=== PATIENT | male | born 1950 | race Caucasian/White ===

== ENCOUNTER → 2020-05-02 10:19 | Outpatient (BNVA) | payer OTHER, SELFPAY | PROVIDERS: PCP Internal Medicine; Referring Provider Internal Medicine; Visit Provider Nurse Practitioner Family | DX: Z76.89 Persons encountering health services in other specified circumstances (principal) ==

== ENCOUNTER → 2020-06-04 10:55 | Outpatient (BNVA) | payer OTHER, SELFPAY | PROVIDERS: PCP Internal Medicine; Visit Provider Nurse Practitioner Family | DX: Z76.89 Persons encountering health services in other specified circumstances (principal) ==

== ENCOUNTER 2020-08-12 07:23 | Outpatient (REF) | payer OTHER, SELFPAY ==
[2020-08-12 08:29] LABS: MANUAL DIFF FLAG NO
[2020-08-12 08:34] LABS: Basophils Percent Auto 0.3 % (0-2); Eosinophils Absolute Auto 0.2 X10*3/uL (0.0-0.4); Eosinophils Percent Auto 3.1 % (0-4); Hematocrit 38.4 % (42-52); Imm Gran Abs Auto 0.01 X10*3/uL (0.00-0.03); Imm Gran Pct Auto 0.1 % (0.0-0.4); Lymphocytes Absolute Auto 2.5 X10*3/uL (1.2-4.9); Lymphocytes Percent Auto 37.8 % (20-40); Mean Corpuscular HGB Conc 33.9 g/dl (31.0-36.0); Mean Corpuscular Hemoglobin 28.7 pg (27.0-33.0); Mean Corpuscular Volume 84.8 fL (80-98); Mean Platelet Volume 9.9 fL (9.4-12.4); Monocytes Absolute Auto 0.6 X10*3/uL (0.1-1.2); Neutrophils Absolute Auto 3.3 X10*3/uL (2.0-8.3); Neutrophils Percent Auto 49.7 % (45-73); Platelet Count 189 X10*3/uL (160-400); Red Blood Count 4.53 X10*6/uL (4.60-5.80); Red Cell Distribution Width 12.8 % (11.0-16.0); White Blood Count 6.7 X10*3/uL (4.8-10.8)
[2020-08-12 08:54] LABS: Carbon Dioxide 27 mmol/L (22-29); Chloride 108 mmol/L (96-108); Sodium 144 mmol/L (135-145)
[2020-08-12 08:55] LABS: Alanine Aminotransferase 28 U/L (0-40); Albumin Level 4.2 g/dL (3.5-5.0); Alkaline Phosphatase 115 U/L (39-117); Anion Gap 13 (12-20); Aspartate Amino Transferase 21 U/L (5-37); Bilirubin Total 0.9 mg/dL (0.0-1.0); Blood Urea Nitrogen 15 mg/dL (9-16); Calcium 8.8 mg/dL (8.4-10.2); Cholesterol 103 mg/dL; Estimated Glomerular Filt Rate > 60; Glucose Fasting 102 mg/dL (60-99); HDL Cholesterol 31 mg/dL; LDL Cholesterol Calculated 44 mg/dl; Total Protein 6.7 g/dL (6.5-8.0); Triglycerides 142 mg/dL
[2020-08-12 08:55] LABS: Glucose Urine UA NEG (NEG); Leukocyte Esterase Urine NEG (NEG); Nitrite Urine NEG (NEG); Specific Gravity - Urine 1.025 (1.005-1.025); Urine Blood NEG (NEG); Urine Ketones NEG (NEG); Urine Protein NEG (NEG-TRACE)
[2020-08-12 08:57] LABS: Appearance Urine CLEAR; Color Urine YELLOW
[2020-08-12 09:19] LABS: Prostate Specific Antigen 1.77 ng/mL (<0.05-4.0)
== END 2020-08-12 07:24 | disposition home or self-care (01) ==
LOC: HO.LAB 07:23
PROVIDERS: Visit Provider Internal Medicine
DX: Z00.00 Encounter for general adult medical examination without abnormal findings (principal); E78.00 Pure hypercholesterolemia, unspecified; R79.89 Other specified abnormal findings of blood chemistry
CPT/HCPCS: 36415; 80053; 80061; 81003; 84153; 85025

== ENCOUNTER 2020-09-12 10:53 | Outpatient (REF) | payer OTHER, SELFPAY ==
[2020-09-12 12:41] LABS: MANUAL DIFF FLAG NO
[2020-09-12 13:02] LABS: Basophils Percent Auto 0.5 % (0-2); Eosinophils Absolute Auto 0.2 X10*3/uL (0.0-0.4); Eosinophils Percent Auto 2.6 % (0-4); Hematocrit 41.9 % (42-52); Hemoglobin 13.7 g/dl (14.0-18.0); Imm Gran Abs Auto 0.02 X10*3/uL (0.00-0.03); Imm Gran Pct Auto 0.2 % (0.0-0.4); Lymphocytes Absolute Auto 2.8 X10*3/uL (1.2-4.9); Lymphocytes Percent Auto 31.2 % (20-40); Mean Corpuscular HGB Conc 32.7 g/dl (31.0-36.0); Mean Corpuscular Hemoglobin 28.4 pg (27.0-33.0); Mean Corpuscular Volume 86.7 fL (80-98); Mean Platelet Volume 10.3 fL (9.4-12.4); Monocytes Absolute Auto 0.8 X10*3/uL (0.1-1.2); Monocytes Percent Auto 8.5 % (2-11); Neutrophils Absolute Auto 5.1 X10*3/uL (2.0-8.3); Platelet Count 274 X10*3/uL (160-400); Red Blood Count 4.83 X10*6/uL (4.60-5.80); Red Cell Distribution Width 13.4 % (11.0-16.0); White Blood Count 8.9 X10*3/uL (4.8-10.8)
[2020-09-12 13:19] LABS: Iron 57 mcg/dL (45-160); Percent Iron Saturation 15 % (15-50); Total Iron Binding Capacity 389 mcg/dL (228-428); Unsaturated Iron Binding 332 ug/dL
[2020-09-12 14:26] LABS: Folate 19.8 ng/mL (> or = 4.0); Vitamin B12 468 pg/mL (200-900)
== END 2020-09-12 10:54 | disposition home or self-care (01) ==
LOC: HO.LNP 10:53
PROVIDERS: Absent Provider Internal Medicine; PCP Internal Medicine; Visit Provider Internal Medicine Cardiovascular Disease
DX: I25.10 Atherosclerotic heart disease of native coronary artery without angina pectoris (principal); R79.89 Other specified abnormal findings of blood chemistry; Z79.82 Long term (current) use of aspirin; Z79.899 Other long term (current) drug therapy
CPT/HCPCS: 82607; 82746; 83540; 85025

== ENCOUNTER → 2020-11-22 14:47 | Outpatient (BNVA) | payer OTHER, SELFPAY | PROVIDERS: PCP Internal Medicine; Visit Provider Nurse Practitioner Family ==

== ENCOUNTER → 2020-12-06 13:28 | Outpatient (BNVA) | payer OTHER, SELFPAY | PROVIDERS: PCP Internal Medicine; Visit Provider Nurse Practitioner Family ==

== ENCOUNTER 2021-01-14 06:06 | Outpatient (REF) | payer OTHER, SELFPAY | END 2021-01-14 06:07 | disposition home or self-care (01) | LOC: HO.RADIR 06:06 | PROVIDERS: Visit Provider Anesthesiology | DX: Z13.89 Encounter for screening for other disorder (principal) ==

== ENCOUNTER 2021-01-22 06:03 | Outpatient (REF) | payer OTHER, SELFPAY ==
--- NOTE | ~2021-01-22 | FL_ITS ---
EXAMINATION: XR FLUOROSCOPY WITH IMAGES CLINICAL INFORMATION: M54.16 - Radiculopathy, lumbar region COMPARISON: MR lumbar spine 08/23/2013 TECHNIQUE: Fluoroscopy performed by Melanie Corona NP. Fluoroscopy time: 0.7 minutes DAP: 7.28 Gycm2 Images: 3 FINDINGS: There are bilateral spinal needles at outer aspect bilateral L4 neural foramen. There is contrast in the nerve sheaths and some transforaminal epidural extension. No visible vascular communication. FL/FL guidance in treatment room IMPRESSION: Fluoroscopy for pain management procedures.
== END 2021-01-22 06:04 | disposition home or self-care (01) ==
LOC: HO.RADIR 06:03
PROVIDERS: Visit Provider Internal Medicine
DX: M54.16 Radiculopathy, lumbar region (principal); M47.816 Spondylosis without myelopathy or radiculopathy, lumbar region
CPT/HCPCS: J1100; J3300; Q9967

== ENCOUNTER → 2021-01-22 07:22 | Outpatient (BNVA) | payer OTHER, SELFPAY | PROVIDERS: PCP Internal Medicine; Visit Provider Internal Medicine | DX: M54.16 Radiculopathy, lumbar region (principal); M47.816 Spondylosis without myelopathy or radiculopathy, lumbar region; E78.5 Hyperlipidemia, unspecified; I25.10 Atherosclerotic heart disease of native coronary artery without angina pectoris; Z95.5 Presence of coronary angioplasty implant and graft; Z98.890 Other specified postprocedural states; Z91.011 Allergy to milk products; Z79.899 Other long term (current) drug therapy | CPT/HCPCS: 64483 ==

== ENCOUNTER 2021-02-10 10:37 | Outpatient (REF) | payer OTHER, SELFPAY ==
[2021-02-10 11:33] LABS: Alanine Aminotransferase 13 U/L (0-40); Albumin Level 4.1 g/dL (3.5-5.0); Alkaline Phosphatase 109 U/L (39-117); Aspartate Amino Transferase 16 U/L (5-37); Bilirubin Direct 0.3 mg/dL (0.0-0.5); Bilirubin Total 0.8 mg/dL (0.0-1.0); Cholesterol 104 mg/dL; HDL Cholesterol 33 mg/dL; LDL Cholesterol Calculated 48 mg/dl; Total Protein 6.8 g/dL (6.5-8.0); Triglycerides 116 mg/dL
[2021-02-10 11:48] LABS: Reflex LDLD? No
== END 2021-02-10 10:38 | disposition home or self-care (01) ==
LOC: HO.LNP 10:37
PROVIDERS: Visit Provider Internal Medicine
DX: R79.89 Other specified abnormal findings of blood chemistry (principal); E78.00 Pure hypercholesterolemia, unspecified
CPT/HCPCS: 80061; 80076

== ENCOUNTER → 2021-02-18 08:50 | Outpatient (BNVA) | payer OTHER, SELFPAY | PROVIDERS: PCP Internal Medicine; Visit Provider Nurse Practitioner Family ==

== ENCOUNTER 2021-02-25 08:46 | Outpatient (REF) | payer OTHER, SELFPAY ==
--- NOTE | ~2021-02-25 | MR_ITS ---
EXAMINATION: MR LUMBAR SPINE WITHOUT AND WITH CONTRAST CLINICAL INFORMATION: Radiculopathy, lumbar region. COMPARISON: Lumbar spine MRI 08/23/2013. TECHNIQUE: MRI of the lumbar spine was obtained using routine sequences without and with intravenous contrast. A total of 8.5 mL Gadavist was intravenously administered. FINDINGS: The lumbar vertebral bodies maintain normal heights and alignment. No significant disc height loss is seen. Significant marrow edema is seen across the endplates of L4-L5 and some edema also present in the right-sided L4 and L5 pedicles. The distal spinal cord appears normal. The conus medullaris terminates normally at the L2 level. No abnormal cauda equina nerve root enhancement is seen. The visualized paraspinal muscles and intra-abdominal and pelvic contents are within normal limits. SPINAL LEVELS: L1-L2: No posterior disc abnormality. No spinal canal or neural foraminal stenosis. L2-L3: Mild disc bulging with mild facet arthropathy. No spinal canal or neural foraminal stenosis. No significant change. L3-L4: Disc bulging with ligamentum flavum infolding mild facet arthropathy resulting in mild spinal canal stenosis and asymmetric left subarticular stenosis and mild bilateral neural foraminal stenosis. Findings have mildly progressed. L4-L5: Postoperative findings related to posterior decompression. A 9 mm left-sided synovial facet cyst effaces the left subarticular zone resulting in compression of the traversing left L5 nerve root. In combination with disc bulging right-sided ligamentum flavum infolding and facet arthropathy there is moderate to severe spinal canal stenosis. Right-sided foraminal extrusion results in compression of the exiting right L4 nerve root. There is moderate left and moderate to severe right neural foraminal stenosis. Findings or new compared with prior. L5-S1: Disc bulging with ligamentum flavum infolding and moderate facet arthropathy resulting in bilateral subarticular stenosis with mild compression of the traversing left more than right S1 nerve roots. Moderate to severe left and severe right neural foraminal stenosis with compression of both exiting L5 nerve roots. MR/MR lumbar spine wo/w con IMPRESSION: At L4-L5 there are postoperative findings related to posterior decompression. A new left-sided synovial facet cyst measuring 9 mm in combination with degenerative changes results in compression of the traversing left L5 nerve root and moderate to severe spinal canal stenosis with thecal sac compression. Right foraminal extrusion compresses the exiting right L4 nerve root. Moderate left and moderate to severe right neural foraminal stenosis. At L5-S1 there is bilateral subarticular stenosis with mild compression of the traversing left more than right S1 nerve roots. Moderate to severe left and severe right neural foraminal stenosis is seen with compression of both exiting L5 nerve roots.
[2021-02-25 08:19] LABS: Blood Urea Nitrogen 14 mg/dL (9-16); Estimated Glomerular Filt Rate > 60
== END 2021-02-25 08:47 | disposition home or self-care (01) ==
LOC: HO.MRI 08:46
PROVIDERS: PCP Internal Medicine; Visit Provider Nurse Practitioner Family
DX: Z01.812 Encounter for preprocedural laboratory examination (principal); M54.16 Radiculopathy, lumbar region
CPT/HCPCS: 36415; 72158; 82565; 84520; A9585

== ENCOUNTER → 2021-03-12 11:31 | Outpatient (BNVA) | payer OTHER, SELFPAY | PROVIDERS: PCP Internal Medicine; Visit Provider Nurse Practitioner Family ==

== ENCOUNTER → 2021-03-13 10:09 | Outpatient (BNVA) | payer OTHER, SELFPAY | PROVIDERS: PCP Internal Medicine; Visit Provider Internal Medicine Cardiovascular Disease | DX: I25.118 Atherosclerotic heart disease of native coronary artery with other forms of angina pectoris (principal); E78.5 Hyperlipidemia, unspecified; M54.16 Radiculopathy, lumbar region; Z87.891 Personal history of nicotine dependence; Z98.890 Other specified postprocedural states; Z95.5 Presence of coronary angioplasty implant and graft; Z91.011 Allergy to milk products; Z79.899 Other long term (current) drug therapy | CPT/HCPCS: 93005 ==

== ENCOUNTER 2021-04-02 06:31 | Outpatient (REF) | payer OTHER, SELFPAY ==
--- NOTE | ~2021-04-02 | FL_ITS ---
EXAMINATION: XR FLUOROSCOPY WITH IMAGES CLINICAL INFORMATION: Spondylosis without myelopathy or radiculopathy. COMPARISON: Previous exam 01/22/2021 TECHNIQUE: Fluoroscopy performed by Melanie Corona NP. Fluoroscopy time: 0.3 minutes DAP: 2.46 Gycm2 Images: 2 FINDINGS: 2 images operative fluoroscopy reveals needle positioned adjacent to the right L5 and L4 pedicles with contrast opacifying the adjacent soft tissues. There is opacification of right epidural space at the L4-L5 disc level. Visualized bones and intervening disc heights appear unremarkable. FL/FL guidance in treatment room IMPRESSION: Fluoroscopy was provided to referring physician for pain management.
== END 2021-04-02 06:32 | disposition home or self-care (01) ==
LOC: HO.RADIR 06:31
PROVIDERS: Visit Provider Internal Medicine
DX: M47.816 Spondylosis without myelopathy or radiculopathy, lumbar region (principal); M54.16 Radiculopathy, lumbar region
CPT/HCPCS: 64493; 64494; Q9967

== ENCOUNTER → 2021-04-11 08:26 | Outpatient (BNVA) | payer OTHER, SELFPAY | PROVIDERS: PCP Internal Medicine; Visit Provider Internal Medicine ==

== ENCOUNTER → 2021-06-30 10:59 | Outpatient (BNVA) | payer OTHER, SELFPAY | PROVIDERS: PCP Internal Medicine; Visit Provider Internal Medicine ==

== ENCOUNTER 2021-07-30 05:46 | Outpatient (REF) | payer OTHER, SELFPAY ==
--- NOTE | ~2021-07-30 | FL_ITS ---
EXAMINATION: Intraoperative fluoroscopy CLINICAL INFORMATION: Spondylosis COMPARISON: Intraoperative fluoroscopy 04/02/2021 TECHNIQUE: Intraoperative fluoroscopy was provided for use by Dr. Mustafa. A total of 7 images were saved to PACS. A radiologist was not present during imaging. Today's dictation is only for administrative purposes to document intraoperative fluoroscopic usage. TOTAL FLUOROSCOPIC TIME: 0.8 minutes FL/FL guidance in treatment room FINDINGS~\^^ Intraoperative fluoroscopy provided for use by Dr. Mustafa. Please see operative note for detailed findings.
== END 2021-07-30 05:47 | disposition home or self-care (01) ==
LOC: HO.RADIR 05:46
PROVIDERS: Visit Provider Internal Medicine
DX: M47.816 Spondylosis without myelopathy or radiculopathy, lumbar region (principal); M54.16 Radiculopathy, lumbar region
CPT/HCPCS: 64635; 64636

== ENCOUNTER → 2021-08-06 10:51 | Outpatient (BNVA) | payer OTHER, SELFPAY | PROVIDERS: PCP Internal Medicine; Referring Provider Internal Medicine; Visit Provider Internal Medicine Cardiovascular Disease ==

== ENCOUNTER 2021-08-25 10:40 | Outpatient (REF) | payer OTHER, SELFPAY ==
[2021-08-25 10:43] LABS: MANUAL DIFF FLAG NO
[2021-08-25 10:52] LABS: Basophils Percent Auto 0.3 % (0-2); Eosinophils Absolute Auto 0.2 X10*3/uL (0.0-0.4); Eosinophils Percent Auto 2.9 % (0-4); Hematocrit 39.1 % (42.0-52.0); Hemoglobin 11.9 g/dl (14.0-18.0); Imm Gran Abs Auto 0.01 X10*3/uL (0.00-0.03); Imm Gran Pct Auto 0.1 % (0.0-0.4); Lymphocytes Absolute Auto 2.5 X10*3/uL (1.2-4.9); Lymphocytes Percent Auto 32.8 % (20-40); Mean Corpuscular HGB Conc 30.4 g/dl (31.0-36.0); Mean Corpuscular Hemoglobin 24.1 pg (27.0-33.0); Mean Corpuscular Volume 79.1 fL (80.0-98.0); Mean Platelet Volume 10.6 fL (9.4-12.4); Monocytes Absolute Auto 0.7 X10*3/uL (0.1-1.2); Monocytes Percent Auto 9.3 % (2-11); Neutrophils Absolute Auto 4.2 x10*3/uL (2.0-8.3); Neutrophils Percent Auto 54.6 % (45-73); Platelet Count 251 X10*3/uL (160-400); Red Blood Count 4.94 X10*6/uL (4.60-5.80); White Blood Count 7.6 X10*3/uL (4.8-10.8)
[2021-08-25 11:00] LABS: Appearance Urine CLEAR; Color Urine YELLOW; Glucose Urine UA NEG (NEG); Leukocyte Esterase Urine NEG (NEG); Nitrite Urine NEG (NEG); PH 5.5 (5.0-8.0); Specific Gravity - Urine 1.025 (1.005-1.025); Urine Blood NEG (NEG); Urine Ketones NEG (NEG); Urine Protein NEG (NEG-TRACE)
[2021-08-25 11:19] LABS: Alanine Aminotransferase 17 U/L (0-40); Albumin Level 4.2 g/dL (3.5-5.0); Alkaline Phosphatase 134 U/L (39-117); Anion Gap 12 (12-20); Aspartate Amino Transferase 21 U/L (5-37); Bilirubin Total 0.7 mg/dL (0.0-1.0); Blood Urea Nitrogen 16 mg/dL (9-16); Calcium 9.3 mg/dL (8.4-10.2); Carbon Dioxide 26 mmol/L (22-29); Chloride 110 mmol/L (96-108); Cholesterol 102 mg/dL; Estimated Glomerular Filt Rate > 60; Glucose Fasting 103 mg/dL (60-99); HDL Cholesterol 31 mg/dL; LDL Cholesterol Calculated 52 mg/dl; Potassium 3.9 mmol/L (3.3-5.1); Sodium 144 mmol/L (135-145); Total Protein 6.8 g/dL (6.5-8.0); Triglycerides 99 mg/dL
[2021-08-25 12:17] LABS: PSA,Total (Free>4and<10) 3.62 ng/mL (0.00-4.00)
== END 2021-08-25 10:41 | disposition home or self-care (01) ==
LOC: HO.LNP 10:40
PROVIDERS: PCP Internal Medicine; Visit Provider Internal Medicine
DX: Z00.00 Encounter for general adult medical examination without abnormal findings (principal); R79.89 Other specified abnormal findings of blood chemistry; E78.00 Pure hypercholesterolemia, unspecified
CPT/HCPCS: 80053; 80061; 81003; 84153; 85025

== ENCOUNTER → 2021-08-29 10:04 | Outpatient (BNVA) | payer OTHER, SELFPAY | PROVIDERS: PCP Internal Medicine; Visit Provider Internal Medicine ==

== ENCOUNTER 2021-10-08 06:20 | Outpatient (REF) | payer OTHER, SELFPAY ==
--- NOTE | ~2021-10-08 | FL_ITS ---
EXAMINATION: XR FLUOROSCOPY WITH IMAGES CLINICAL INFORMATION: M48.062 - Spinal stenosis, lumbar region COMPARISON: MR lumbar spine 02/25/2021 TECHNIQUE: Fluoroscopy performed by Dr. Michael De La Cruz. Fluoroscopy time: 1.0 minutes DAP: 5.69 Gycm2 Images: 4 FINDINGS: There are spinal needles overlying the bilateral outer L4 neural foramen. There is contrast seen in the respective nerve sheaths along with early transforaminal epidural extension. No visible vascular communication. FL/FL guidance in treatment room IMPRESSION: Fluoroscopy for pain management procedures.
== END 2021-10-08 06:21 | disposition home or self-care (01) ==
LOC: HO.RADIR 06:20
PROVIDERS: Visit Provider Internal Medicine
DX: M47.816 Spondylosis without myelopathy or radiculopathy, lumbar region (principal); M48.062 Spinal stenosis, lumbar region with neurogenic claudication; Z87.891 Personal history of nicotine dependence
CPT/HCPCS: 64483; 64484; J1100; Q9967

== ENCOUNTER → 2021-11-07 10:35 | Outpatient (BNVA) | payer OTHER, SELFPAY | PROVIDERS: PCP Internal Medicine; Visit Provider Nurse Practitioner Family | DX: Z13.89 Encounter for screening for other disorder (principal) ==

== ENCOUNTER 2021-11-24 10:30 | Outpatient (REF) | payer OTHER, SELFPAY ==
[2021-11-24 11:07] LABS: Alanine Aminotransferase 16 U/L (0-40); Albumin Level 4.3 g/dL (3.5-5.0); Alkaline Phosphatase 113 U/L (39-117); Aspartate Amino Transferase 17 U/L (5-37); Bilirubin Direct 0.2 mg/dL (0.0-0.5); Bilirubin Total 0.6 mg/dL (0.0-1.0); Total Protein 6.8 g/dL (6.5-8.0)
== END 2021-11-24 10:31 | disposition home or self-care (01) ==
LOC: HO.LNP 10:30
PROVIDERS: PCP Internal Medicine; Visit Provider Internal Medicine
DX: R79.89 Other specified abnormal findings of blood chemistry (principal)
CPT/HCPCS: 80076

== ENCOUNTER → 2021-12-08 10:23 | Outpatient (BNVA) | payer OTHER, SELFPAY | PROVIDERS: PCP Internal Medicine; Visit Provider Internal Medicine | DX: M48.062 Spinal stenosis, lumbar region with neurogenic claudication (principal) ==

== ENCOUNTER → 2022-02-12 09:08 | Outpatient (BNVA) | payer OTHER, SELFPAY | PROVIDERS: PCP Internal Medicine; Referring Provider Internal Medicine; Visit Provider Internal Medicine Cardiovascular Disease | DX: I25.10 Atherosclerotic heart disease of native coronary artery without angina pectoris (principal); R00.1 Bradycardia, unspecified | CPT/HCPCS: 93005 ==

== ENCOUNTER 2022-02-26 10:22 | Outpatient (REF) | payer OTHER, SELFPAY ==
[2022-02-26 10:51] LABS: Alanine Aminotransferase 20 U/L (0-40); Albumin Level 4.4 g/dL (3.5-5.0); Alkaline Phosphatase 141 U/L (39-117); Aspartate Amino Transferase 19 U/L (5-37); Bilirubin Direct 0.2 mg/dL (0.0-0.5); Bilirubin Total 0.6 mg/dL (0.0-1.0); Cholesterol 136 mg/dL; HDL Cholesterol 33 mg/dL; LDL Cholesterol Calculated 33 mg/dl; Total Protein 6.9 g/dL (6.5-8.0); Triglycerides 350 mg/dL
== END 2022-02-26 10:23 | disposition home or self-care (01) ==
LOC: HO.LNP 10:22
PROVIDERS: Visit Provider Internal Medicine
DX: Z12.5 Encounter for screening for malignant neoplasm of prostate (principal); R97.20 Elevated prostate specific antigen [PSA]; R79.89 Other specified abnormal findings of blood chemistry; E78.00 Pure hypercholesterolemia, unspecified
CPT/HCPCS: 80061; 80076; 84153

== ENCOUNTER → 2022-08-17 10:10 | Outpatient (BNVA) | payer OTHER, SELFPAY | PROVIDERS: PCP Internal Medicine; Referring Provider Internal Medicine; Visit Provider Internal Medicine Cardiovascular Disease | DX: Z13.89 Encounter for screening for other disorder (principal) ==

== ENCOUNTER 2022-08-27 10:19 | Outpatient (REF) | payer OTHER, SELFPAY ==
[2022-08-27 10:24] LABS: MANUAL DIFF FLAG NO
[2022-08-27 10:53] LABS: Appearance Urine Clear; Color Urine Yellow; Glucose Urine UA Negative (Negative); Leukocyte Esterase Urine Negative (Negative); Nitrite Urine Negative (Negative); PH 5.5 (5.0-9.0); Urine Blood Negative (Negative); Urine Ketones Negative (Negative); Urine Protein Negative (Neg-Trace)
[2022-08-27 11:13] LABS: Alanine Aminotransferase 21 U/L (0-40); Albumin Level 4.2 g/dL (3.5-5.0); Alkaline Phosphatase 124 U/L (39-117); Anion Gap 12 (12-20); Aspartate Amino Transferase 23 U/L (5-37); Bilirubin Total 1.3 mg/dL (0.0-1.0); Blood Urea Nitrogen 18 mg/dL (9-16); Calcium 9.2 mg/dL (8.4-10.2); Carbon Dioxide 25 mmol/L (22-29); Chloride 108 mmol/L (96-108); Cholesterol 131 mg/dL; Estimated Glomerular Filt Rate > 60; Glucose Fasting 91 mg/dL (60-99); HDL Cholesterol 35 mg/dL; LDL Cholesterol Calculated 67 mg/dl; Potassium 3.9 mmol/L (3.3-5.1); Sodium 141 mmol/L (135-145); Total Protein 6.5 g/dL (6.5-8.0); Triglycerides 147 mg/dL
[2022-08-27 11:22] LABS: Basophils Percent Auto 0.5 % (0-2); Eosinophils Absolute Auto 0.2 X10*3/uL (0.0-0.4); Eosinophils Percent Auto 3.1 % (0-4); Hematocrit 41.3 % (42.0-52.0); Imm Gran Abs Auto 0.03 X10*3/uL (0.00-0.03); Imm Gran Pct Auto 0.4 % (0.0-0.4); Lymphocytes Absolute Auto 2.7 X10*3/uL (1.2-4.9); Lymphocytes Percent Auto 35.1 % (20-40); Mean Corpuscular HGB Conc 33.9 g/dl (31.0-36.0); Mean Corpuscular Hemoglobin 28.9 pg (27.0-33.0); Mean Corpuscular Volume 85.2 fL (80.0-98.0); Mean Platelet Volume 10.5 fL (9.4-12.4); Monocytes Absolute Auto 0.7 X10*3/uL (0.1-1.2); Neutrophils Percent Auto 51.9 % (45-73); Platelet Count 232 X10*3/uL (160-400); Red Blood Count 4.85 X10*6/uL (4.60-5.80); Red Cell Distribution Width 14.4 % (11.0-16.0); White Blood Count 7.8 X10*3/uL (4.8-10.8)
[2022-08-27 11:28] LABS: PSA,Total (Free>4and<10) 3.42 ng/mL (0.00-4.00)
== END 2022-08-27 10:20 | disposition home or self-care (01) ==
LOC: HO.LNP 10:19
PROVIDERS: Visit Provider Internal Medicine
DX: Z00.00 Encounter for general adult medical examination without abnormal findings (principal); Z12.5 Encounter for screening for malignant neoplasm of prostate; E78.00 Pure hypercholesterolemia, unspecified; R79.89 Other specified abnormal findings of blood chemistry
CPT/HCPCS: 80053; 80061; 81003; 84153; 85025

== ENCOUNTER 2022-09-24 09:06 | Outpatient (REF) | payer OTHER, SELFPAY ==
--- NOTE | ~2022-09-24 | XR_ITS ---
EXAMINATION: XR SHOULDER, RIGHT CLINICAL INFORMATION: Pain. COMPARISON: None TECHNIQUE: AP neutral, scapular Y, and axillary views of the right shoulder. FINDINGS: There is bony demineralization. The glenohumeral joint is intact and shows very mild osteoarthritic change. The acromioclavicular and coracoclavicular intervals are normal. There is mild osteoarthritic change of the acromioclavicular joint. No fracture or dislocation is seen. There is a soft tissue calcification seen anterior to the proximal right humerus. No foreign body is seen. There is no right pneumothorax. XR/XR shoulder LT min 2V IMPRESSION: 1. No fracture or dislocation is seen. 2. There is very mild osteoarthritic change of the right glenohumeral joint, and mild osteoarthritic changes seen of the right acromioclavicular joint. EXAMINATION: XR SHOULDER, LEFT CLINICAL INFORMATION: Pain. COMPARISON: None TECHNIQUE: AP neutral, scapular Y, and axillary views of the left shoulder. FINDINGS: There is bony demineralization. The glenohumeral joint is intact. There is a tiny accessory ossification center seen at the inferior margin of the glenoid. The acromioclavicular and coracoclavicular intervals are normal. There is mild osteoarthritic change of the acromioclavicular joint. There is calcific tendinitis of the left rotator cuff. No foreign body is seen. There is no left pneumothorax. IMPRESSION: 1. No fracture or dislocation is seen. 2. There is mild osteoarthritic change of the left acromioclavicular joint. 3. There is calcific tendinitis of the left rotator cuff.
--- NOTE | ~2022-09-24 | XR_ITS ---
EXAMINATION: XR SHOULDER, RIGHT CLINICAL INFORMATION: Pain. COMPARISON: None TECHNIQUE: AP neutral, scapular Y, and axillary views of the right shoulder. FINDINGS: There is bony demineralization. The glenohumeral joint is intact and shows very mild osteoarthritic change. The acromioclavicular and coracoclavicular intervals are normal. There is mild osteoarthritic change of the acromioclavicular joint. No fracture or dislocation is seen. There is a soft tissue calcification seen anterior to the proximal right humerus. No foreign body is seen. There is no right pneumothorax. XR/XR shoulder RT min 2V IMPRESSION: 1. No fracture or dislocation is seen. 2. There is very mild osteoarthritic change of the right glenohumeral joint, and mild osteoarthritic changes seen of the right acromioclavicular joint. EXAMINATION: XR SHOULDER, LEFT CLINICAL INFORMATION: Pain. COMPARISON: None TECHNIQUE: AP neutral, scapular Y, and axillary views of the left shoulder. FINDINGS: There is bony demineralization. The glenohumeral joint is intact. There is a tiny accessory ossification center seen at the inferior margin of the glenoid. The acromioclavicular and coracoclavicular intervals are normal. There is mild osteoarthritic change of the acromioclavicular joint. There is calcific tendinitis of the left rotator cuff. No foreign body is seen. There is no left pneumothorax. IMPRESSION: 1. No fracture or dislocation is seen. 2. There is mild osteoarthritic change of the left acromioclavicular joint. 3. There is calcific tendinitis of the left rotator cuff.
== END 2022-09-24 09:07 | disposition home or self-care (01) ==
LOC: HO.HOSX 09:06
PROVIDERS: Visit Provider Orthopaedic Surgery
DX: M75.42 Impingement syndrome of left shoulder (principal); M75.52 Bursitis of left shoulder; M25.511 Pain in right shoulder
CPT/HCPCS: 20610; 73030; J1100

== ENCOUNTER 2022-11-18 13:06 | Outpatient (REF) | payer OTHER, SELFPAY ==
--- NOTE | 2022-11-18 10:00 | EMG_ITS ---
Please see scanned EMG / Nerve Conduction Report. MTDD
== END 2022-11-18 13:07 | disposition home or self-care (01) ==
LOC: HO.NEURO 13:06
PROVIDERS: PCP Internal Medicine; Visit Provider Internal Medicine
DX: G56.03 Carpal tunnel syndrome, bilateral upper limbs (principal)
CPT/HCPCS: 95885; 95913

== ENCOUNTER → 2022-12-25 10:33 | Outpatient (BNVA) | payer OTHER, SELFPAY | PROVIDERS: PCP Internal Medicine; Visit Provider Internal Medicine ==

== ENCOUNTER 2023-02-03 06:00 | Outpatient (REF) | payer OTHER, SELFPAY ==
--- NOTE | ~2023-02-03 | FL_ITS ---
EXAMINATION: XR FLUOROSCOPY WITH IMAGES CLINICAL INFORMATION: Spondylosis without myelopathy or radiculopathy, lumbar region. COMPARISON: None available. TECHNIQUE: Fluoroscopy Supervised By: Dr. De La Cruz. Fluoroscopy Time: 0.5 minutes. Cumulative Dose: 15.9 mGy. DAP: 1.16 Gycm2. Images: 5. FINDINGS: Images demonstrate needle placement and contrast injection over the left lateral lower lumbar vertebral bodies. FL/FL guidance in treatment room IMPRESSION: Fluoroscopy guidance for pain management procedure.
== END 2023-02-03 06:01 | disposition home or self-care (01) ==
LOC: CF 06:00
PROVIDERS: Visit Provider Internal Medicine
DX: M47.816 Spondylosis without myelopathy or radiculopathy, lumbar region (principal)
CPT/HCPCS: 64493; 64494; J1020; J1040

== ENCOUNTER 2023-02-03 08:13 | Outpatient (AMB) | payer OTHER, SELFPAY ==
[2023-02-03 08:19] VITALS: BP 128/64; PULSE 58; RESP 14; O2SAT 97
--- NOTE | 2023-02-03 08:19 | A.OFFVIS_ITS ---
Intake Vital Signs 02/03/23 08:19 BP 128/64 Blood Pressure Location Rt brachial Position Sitting Respiration 14 Pulse 58 Pulse Source Pulse Oximeter Pulse Oximetry (%) 97 Oxygen Delivery Method Room Air Intake Visit Reasons: Ramon theraputic L4-L5, L5-S1 facet injections Allergies milk [MILK] Adverse Reaction (Mild, Verified 02/03/23 08:20) CONGESTION PFSH Medical History Coronary artery arteriosclerosis HLD (hyperlipidemia) Lumbar radiculitis Spinal stenosis, lumbar region with neurogenic claudication Surgical History History of back surgery History of carpal tunnel surgery Hx of appendectomy Hx of cardiac cath (~01/2016) Hx of knee surgery (~08/2016) Hx of tonsillectomy Stented coronary artery Family History Father CVD (cardiovascular disease) Mother No problems noted. Social History Alcohol intake: never Patient Tobacco Use Status: Former Tobacco user Years Smoked: 5 years only quit at age 21 Physical Exam Vital Signs: Last Vital Signs Pulse 58 02/03/23 08:19 Resp 14 02/03/23 08:19 BP 128/64 02/03/23 08:19 Pulse Ox 97 02/03/23 08:19 Oxygen Delivery Method Room Air 02/03/23 08:19 Office Procedures Lumbar/Sacral Facet Inj Details: Lumbar Intra-articular Facet Injections, Bilateral, L4/L5, L5/S1 After obtaining written consent, pre-procedure blood pressure and pulse were recorded and are in the nursing record for review. The patient was placed in a prone position. The respective lumbosacral area was prepped with chloraprep and draped in sterile fashion. The target facet joints were visualized using ipsilateral oblique fluoroscopy to reveal the joint line. The skin over the target facet joints was anesthetized with 0.5% lidocaine. A 22 gauge 3.5 inch needle with a small bend on the tip was advanced towards the target facet joint under fluoroscopic guidance until bony contact. The needle was then maneuvered and rotated until it slid into the joint slightly. No paresthesias were elicited with needle placement and aspiration was negative for blood and CSF. Intra- articular position was confirmed with 0.1 mL Isovue. Next, 10 mg of methylprednisone mixed with 0.5 ml 0.5% ropivicaine was injected (0.5cc total per level). The identical procedure was performed at the remaining levels. The skin was cleansed and a sterile bandage was applied. Following the procedure the patient's vital signs were stable. The patient tolerated the procedure well and no complications were encountered. Following the procedure the patient's vital signs were stable. The patient was discharged home in good condition with post-procedural instructions. Time Out: Immediately prior to the procedure, the following was verbally confirmed that there is a signed consent form and that the correct patient, planned procedure, site and side are consistent with documentation and that necessary equipment and/or blood products are available prior to the start of the case. Complications: none EBL: <5 cc 11335 - second level, with Fluoroscopy (bilateral) Procedure code (CPT) selection complete Results Reviewed Results Reviewed: 02/03/23 08:41 Lidocaine HCl 2 % MPF [Xylocaine 2 % MPF] 5 ml .ROUTE .STK-MED ONE methylPREDNISolone acetate [DEPO-MedroL] 80 mg .ROUTE .STK-MED ONE Assessment & Plan Assessment & Plan (1) Lumbar facet arthropathy: Code(s): M47.816 - Spondylosis without myelopathy or radiculopathy, lumbar region Plan Patient is status post bilateral intra-articular facet injections at L4/5 and L5/S1. Patient tolerated procedure well and was discharged home in stable condition with discharge instructions. All questions were answered. We will follow-up via telephone or in clinic to assess response to therapy. A follow-up appointment was made during today's visit. Orders: Orders FL guidance in treatment room Today M47.816 - Spondylosis without myelopathy or radiculopathy, lumbar region Coding Level of Care Code Procedure Only Diagnoses Lumbar facet arthropathy M47.816 CPT Codes Facet Injection-Lumbar/Sacral - CPT: 77124 - second level, with Fluoroscopy ([id number])
== END 2023-02-03 09:15 | disposition home or self-care (01) ==
LOC: HO.PMCPRC 08:13
PROVIDERS: PCP Internal Medicine; Visit Provider Internal Medicine
DX: M47.816 Spondylosis without myelopathy or radiculopathy, lumbar region (principal)
CPT/HCPCS: 64493; 64494

== ENCOUNTER 2023-02-10 08:20 | Outpatient (AMB) | payer OTHER, SELFPAY ==
[2023-02-10 08:31] VITALS: BP 122/64; PULSE 48; BMI 31.7
--- NOTE | 2023-02-10 08:31 | A.OFFVIS_ITS ---
Intake Vital Signs 02/10/23 08:31 Height 5 ft 4 in Weight 184 lb 11.958 oz BMI 31.7 BP 122/64 Blood Pressure Location Lt brachial Position Sitting Pulse 48 L Pulse Source Monitor Intake Visit Reasons: 6 month f/u Intake Note: 6 month follow up with EKG. Pt reports shortness of breath on exertion. Wax Bleacher Required: No Accompanied by: Self / Same As Patient Allergies milk [MILK] Adverse Reaction (Mild, Verified 02/10/23 08:34) CONGESTION Medication List - Last Reconciled 02/10/23 by Misha Ma MD amlodipine 10 mg (2 x 5 mg) PO DAILY aspirin (Adult Low Dose Aspirin) 81 mg PO DAILY atorvastatin 40 mg PO DAILY 90 days gabapentin 100 mg PO TID 30 days metoprolol succinate ER 25 mg PO DAILY nitroglycerin 0.4 mg sublingual Q5M PRN omeprazole 20 mg PO DAILY sertraline 100 mg PO DAILY HPI HPI Comments 2 History of Present Illness Details Deangelo comes for follow-up. He has been feeling extremely well since injection to spine and his pain is much improved. Now when he is climbing a flight of stairs or doing his usual activity gets short of breath on exertion. He denies any orthopnea, PND, leg edema. No actual anginal sounding chest discomfort. Taking all his medications. Denies palpitations, lightheadedness, syncope. REPLACED BY [facility] Medical History Coronary artery arteriosclerosis HLD (hyperlipidemia) Lumbar radiculitis Spinal stenosis, lumbar region with neurogenic claudication Surgical History History of back surgery History of carpal tunnel surgery Hx of appendectomy Hx of cardiac cath (~01/2016) Hx of knee surgery (~08/2016) Hx of tonsillectomy Stented coronary artery Family History Father CVD (cardiovascular disease) Mother No problems noted. Social History Alcohol intake: never Patient Tobacco Use Status: Former Tobacco user Years Smoked: 5 years only quit at age 21 Review of Systems Const Denies weakness ENT Denies dizziness Card Denies chest pain, Denies chest pain with activity, Denies syncope, Denies rapid heart rate, Denies pedal edema, Denies edema, Denies leg edema, Denies lightheadedness, Denies palpitations, Denies dyspnea, Denies dyspnea on exertion and Denies orthopnea Resp Denies cough, Denies dyspnea and Denies dyspnea on exertion GI Denies hematochezia and Denies change in stool character Musc Denies abnormal gait, Denies muscle cramps, Denies muscle weakness, Denies numbness, Denies radiating pain into limb and Denies tingling Neuro Denies abnormal gait, Denies dizziness, Denies syncope, Denies numbness, Denies tingling and Denies weakness Endo Denies palpitations Physical Exam Vital Signs: Last Vital Signs Pulse 48 L 02/10/23 08:31 BP 122/64 02/10/23 08:31 BMI result Body Mass Index 31.7 Const General: cooperative, comfortable, no acute distress, alert and awake Nutritional Appearance: overweight Orientation/consciousness: patient oriented x3 Limitations: no limitations Neck Neck: Yes trachea midline and Yes no JVD Chest Chest palpation & inspection: normal inspection of the chest Resp Effort & Inspection: normal respiratory effort Auscultation: clear to auscultation bilaterally Cardio Jugular venous distension: no JVD Palpation: normal PMI Rate: regular rate Rhythm: regular rhythm Heart sounds: S1 normal heart sound present, S2 normal heart sound present and Other heart sounds present (S4 present) Skin General skin exam: no rashes or lesions noted Neuro General: patient oriented x3 and no focal motor deficits Extrem General: Yes no clubbing, cyanosis or edema Psych Appearance: grossly normal Office Procedures EKG Details: EKG shows sinus bradycardia with right bundle-branch block at 48 beats per minute [id number], Complete Assessment & Plan Assessment & Plan (1) SOB (shortness of breath) on exertion: Code(s): R06.02 - Shortness of breath Plan: Patient with symptom limiting exertional shortness of breath. No overt signs of heart failure. Need to rule out any significant progressive myocardial ischemia and/or LV systolic and diastolic function. Could also be related to chronotropic competence related to sinus bradycardia metoprolol therapy. Could also be related to deconditioning from limited exercise activity when he was having significant back issues. Will suggest exercise myocardial perfusion imaging in near future as well as an echocardiogram. Will taper and discontinue metoprolol therapy. (2) Coronary artery arteriosclerosis: Code(s): I25.10 - Atherosclerotic heart disease of [place] coronary artery without angina pectoris Plan: CAD with prior RCA stent. Continue aggressive medical therapy. Workup as above. Continue low-dose aspirin therapy for life. Blood pressure is currently well optimized advised to monitor blood pressure at home maintain a log. Goal blood pressure less than 130/84. Continue high-intensity statin therapy with target goal LDL closer to 60 mg/dL. Further workup and follow-up based on the findings of stress test. (3) Sinus bradycardia: Code(s): R00.1 - Bradycardia, unspecified Plan: Sinus bradycardia, suggestive sinoatrial node dysfunction, exacerbated by metoprolol therapy. Taper and discontinue metoprolol therapy. Will follow-up Holter monitor in 4 weeks time. Follow up in the clinic in 6 weeks time, sooner p.r.n.. Thank you for allowing me to partake in his care Orders: Orders CA stress test Today R06.02 - Shortness of breath CA echo transthoracic complete Today R06.02 - Shortness of breath NM cardiolite stress test 2 Weeks R06.02 - Shortness of breath, R07.9 - Chest pain, unspecified ECG 3 day holter monitor 4 Weeks R00.1 - Bradycardia, unspecified Medications: Discontinued metoprolol succinate ER Discontinued Reason: Change Referral Type 25 mg PO DAILY 90 tabs 3RF Coding Level of Care Code Est Pt Level 4 (53871) Diagnoses SOB (shortness of breath) on exertion R06.02 Coronary artery arteriosclerosis I25.10 Sinus bradycardia R00.1 CPT Codes EKG - CPT: 10894-[id number], Complete ([id number])
== END 2023-02-10 08:52 | disposition home or self-care (01) ==
PROVIDERS: Visit Provider Internal Medicine Cardiovascular Disease
DX: R06.02 Shortness of breath (principal); I25.10 Atherosclerotic heart disease of native coronary artery without angina pectoris; R00.1 Bradycardia, unspecified
CPT/HCPCS: 93010; 99214

== ENCOUNTER → 2023-02-10 08:20 | Outpatient (BNVA) | payer OTHER, SELFPAY | PROVIDERS: Visit Provider Internal Medicine Cardiovascular Disease | DX: R06.02 Shortness of breath (principal); I25.10 Atherosclerotic heart disease of native coronary artery without angina pectoris; R20.0 Anesthesia of skin; R00.1 Bradycardia, unspecified; R07.9 Chest pain, unspecified; Z87.39 Personal history of other diseases of the musculoskeletal system and connective tissue; Z98.890 Other specified postprocedural states | CPT/HCPCS: 93005 ==

== ENCOUNTER 2023-02-10 12:58 | Outpatient (AMB) | payer OTHER, SELFPAY ==
--- NOTE | 2023-02-10 13:10 | MHC.OFFVIS ---
Intake Vital Signs 02/10/23 13:16 Height 5 ft 4 in Weight 180 lb BMI 30.9 Handedness Ambidextrous Intake Visit Reasons: New Prob- B/L CTS EMG Done Intake Note: Deangelo 72 yr old left hand dominant male presents today for a new problem visit for numbness and tingling of bilateral hands. States numbness increase at night. He states that his right thumb, pointer finger, middle finger and ring finger get very numb. Patient reports that his right hand is worse than the left. Allergies milk [MILK] Adverse Reaction (Mild, Verified 02/10/23 13:15) CONGESTION HPI New Prob- B/L CTS EMG Done HPI Details Deangelo is a 72 year old right hand dominant man who presents for a NCS review of his bilateral hand numbness, R>L. He has a Hx of bilateral carpal tunnel releases performed at an outside clinic in ~2015. He had normal sensation following his surgeries. He complains primarily of numbness in the right hand median nerve distribution, though he says some mornings the numbness radiates into his arm. He says this numbness is constant. He has some numbness in his left hand, but this is intermittent and occasional He has a hx of a coronary stent. He denies any blood thinners but may occasionally use nitroglycerin. He works as a special needs manager of business operations, and is off of work for the summer months. [facility] Medical History Coronary artery arteriosclerosis HLD (hyperlipidemia) Lumbar radiculitis Spinal stenosis, lumbar region with neurogenic claudication Surgical History History of back surgery History of carpal tunnel surgery Hx of appendectomy Hx of cardiac cath (~01/2016) Hx of knee surgery (~08/2016) Hx of tonsillectomy Stented coronary artery Family History Father CVD (cardiovascular disease) Mother No problems noted. Social History Alcohol intake: never Patient Tobacco Use Status: Former Tobacco user Years Smoked: 5 years only quit at age 21 Review of Systems Const All systems reviewed & are unremarkable except as noted in HPI and below Physical Exam Vital Signs: BMI result Body Mass Index 30.9 Const General: cooperative, healthy appearing and no acute distress Orientation/consciousness: patient oriented x3 HEENT Head: Yes normocephalic and Yes atraumatic Eyes EOM: EOMs intact bilaterally Resp Effort & Inspection: normal respiratory effort and able to speak in complete sentences Cardio Jugular venous distension: no JVD Skin General skin exam: turgor normal Rashes: no rashes Neuro General: patient oriented x3 Extrem Other: Evaluation of Bilateral Upper Extremity: The patient is alert, oriented, and in no acute distress Neuro: Numbness in the median nerve distribution of the right hand. Normal sensation to the right small finger. normal sensation to the tips of all digits of the left hand. No thenar or intrinsic wasting Good APB muscle belly firing and good finger cross Vascular: Cap refill brisk ROM: He can make a fist and extend all his digits No locking or catching ~20 degree flexion contractures in the middle finger PIPs bilaterally Generalized stiffness in the MCP and PIP joints bilaterally Skin: No lacerations or abrasions. General: No Ecchymosis. No Erythema or evidence of infection. Nerve Conduction Study: Impression Moderate carpal tunnel syndrome bilaterally, slightly worse on the right Dr. smith 11/18/22 Psych Appearance: grossly normal Affect: normal affect Attitude: cooperative Assessment & Plan Assessment & Plan (1) Carpal tunnel syndrome of right wrist: Code(s): G56.01 - Carpal tunnel syndrome, right upper limb (2) Carpal tunnel syndrome of left wrist: Code(s): G56.02 - Carpal tunnel syndrome, left upper limb (3) History of carpal tunnel release of both wrists: Code(s): Z98.890 - Other specified postprocedural states Plan Assessment & Plan: 1. Right carpal tunnel syndrome, moderate Recurrence S/P release at an outside clinic in ~2015, with normal sensation following surgery Persistent numbness in the median nerve distribution This is his primary complaint today I educated him about this condition I discussed treatment options The patient would like to proceed with surgery The risks and benefits of operative treatment were discussed with the patient and the patient wishes to proceed with surgery. These risks include, but are not limited to risk of damage to blood vessels, nerves, tendons, infection, recurrence, incomplete relief of preoperative symptoms, persistent pain, possible need for further surgery and the risks associated with regional blocks and anesthesia. The plan is to take the patient to the operating room sometime in the next few weeks for the following procedures: 1. Right REPEAT carpal tunnel release, under local All of the preoperative paperwork including the consent was filled out today. All the patient's questions were answered. The patient understands that they will be contacted by our weaving machine operator soon to schedule this procedure He denies Diabetes, blood thinners, asthma, lung, kidney issues He has a hx of cardiac issues and has a stent in place. He denies any blood thinners 2. Left carpal tunnel syndrome, moderate Recurrence S/P release at an outside clinic in ~2015, with normal sensation following surgery Symptoms intermittent and occasional He can follow up to discuss treatment when he has recovered from his right side surgery Scribed for Valarie Vidal MD by Damián Muñiz director of medical staff services, on 02/10/23 at 1:30 PM, EST. Coding Level of Care Code Est Pt Level 4 (40334) Diagnoses Carpal tunnel syndrome of right wrist G56.01 Carpal tunnel syndrome of left wrist G56.02 History of carpal tunnel release of both wrists Z98.890
[2023-02-10 13:16] VITALS: BMI 30.9
== END 2023-02-10 13:52 | disposition home or self-care (01) ==
PROVIDERS: PCP Internal Medicine; Visit Provider Orthopaedic Surgery
DX: G56.01 Carpal tunnel syndrome, right upper limb (principal); G56.02 Carpal tunnel syndrome, left upper limb
CPT/HCPCS: 99214

== ENCOUNTER 2023-02-22 10:48 | Outpatient (REF) | payer OTHER, SELFPAY ==
[2023-02-22 11:48] LABS: Alanine Aminotransferase 27 U/L (0-40); Albumin Level 4.2 g/dL (3.5-5.0); Alkaline Phosphatase 130 U/L (39-117); Aspartate Amino Transferase 24 U/L (5-37); Bilirubin Direct 0.4 mg/dL (0.0-0.5); Cholesterol 115 mg/dL; HDL Cholesterol 39 mg/dL; LDL Cholesterol Calculated 51 mg/dl; Total Protein 7.1 g/dL (6.5-8.0); Triglycerides 126 mg/dL
== END 2023-02-22 10:49 | disposition home or self-care (01) ==
LOC: HO.LNP 10:48
PROVIDERS: Visit Provider Internal Medicine
DX: E78.00 Pure hypercholesterolemia, unspecified (principal); R97.20 Elevated prostate specific antigen [PSA]; Z12.5 Encounter for screening for malignant neoplasm of prostate
CPT/HCPCS: 80061; 80076; 84153

== ENCOUNTER 2023-03-05 08:01 | Outpatient (AMB) | payer MEDICARE, SELFPAY ==
[2023-03-05 08:07] VITALS: BP 138/68; PULSE 66; RESP 18; BMI 30.9
--- NOTE | 2023-03-05 08:07 | A.OFFVIS_ITS ---
Intake Vital Signs 03/05/23 08:07 Height 5 ft 4 in Weight 180 lb BMI 30.9 BP 138/68 Blood Pressure Location Lt brachial Position Sitting Respiration 18 Pulse 66 Pulse Source Pulse Oximeter Intake Visit Reasons: s/p martin theraputic L4-L5, L5-S1 facet injections Allergies milk [MILK] Adverse Reaction (Mild, Verified 03/05/23 08:08) CONGESTION HPI s/p martin theraputic L4-L5, L5-S1 facet injections HPI Details 72-year-old male presenting today for a status post bilateral therapeutic L4-L5, L5-S1 facet injections. The patient reports >75% relief following the procedure. He has mild stiffness in his back that is not bothersome. His leg pain is stabl e. He is interested in discontinuing his gabapentin 100 mg. The patient reports shoulder pain. His pain aggravates when he lies down to sleep on the bed. He has limited ROM. He reports numbness in his fingers, especially in his 1st and 2nd fingers. He has had carpal tunnel surgery in the past. He is currently following up with Dr. Mckeon. Most recent EMG/NCS showed significant neuropathy of the median nerve across the carpal tunnel, especially on the right side. He has not tried physical therapy for shoulder pain. Past Procedures: 02/03/23: Lumbar Intra-articular Facet Injections, Bilateral, L4/L5, L5/S1: >75% relief. 10/08/21: Bilateral L4 TFESI ? 10 to 20% relief. 07/30/21: Right L3-L4-L5 RFA ? 90% relief, resolution of leg symptoms, likely secondary to obliteration of compressive synovial cyst 04/02/21: Right Diagnostic L3, L4 DRL5 MBB - >75% relief for about 2 days post- procedure. 01/14/21: Bilateral L4-L5 TFESI - 80% improvement on the left side, unsure about the right. [facility] Medical History Coronary artery arteriosclerosis HLD (hyperlipidemia) Lumbar radiculitis Spinal stenosis, lumbar region with neurogenic claudication Surgical History History of back surgery History of carpal tunnel surgery Hx of appendectomy Hx of cardiac cath (~01/2016) Hx of knee surgery (~08/2016) Hx of tonsillectomy Stented coronary artery Family History Father CVD (cardiovascular disease) Mother No problems noted. Social History Alcohol intake: never Patient Tobacco Use Status: Former Tobacco user Years Smoked: 5 years only quit at age 21 Review of Systems Const All systems reviewed & are unremarkable except as noted in HPI and below Physical Exam Vital Signs: Last Vital Signs Pulse 66 03/05/23 08:07 Resp 18 03/05/23 08:07 BP 138/68 03/05/23 08:07 BMI result Body Mass Index 30.9 General: Appears afebrile. Alert and oriented. Mood and affect appropriate. Follows and participates in conversation appropriately. Respiratory effort is unlabored. Able to transition from sit to stand unassisted. Ambulates with bilaterally normal heel strike and toe off. Results Reviewed Results Reviewed: X-ray of the shoulder shows mild osteoarthritis of bilateral glenohumeral joint as well as calcification of soft tissue in the right proximal humerus, likely secondary to calcification of the bicipital tendon. Assessment & Plan Assessment & Plan (1) Bursitis of left shoulder: Code(s): M75.52 - Bursitis of left shoulder (2) Lumbar facet arthropathy: Code(s): M47.816 - Spondylosis without myelopathy or radiculopathy, lumbar region Plan Will schedule him for right bicipital groove as well as subacromial injections under US guidance. Discussed the risks and benefits of the procedure with the patient in detail. All questions were answered. The patient is on board with the plan. Follow-up with Dr. Vidal regarding CTS symptoms as already scheduled. Follow- up regarding low back pain as and when symptoms return. Justification for interventional therapy: ? Patient with average pain > 6/10 ? Patient has exhausted conservative therapy ? Patient is already engaged in home exercise Scribed for Dr. De La Cruz by Hilario Bautista, medical transcription editor, on 03/05/2023. I, Dr. De La Cruz, have personally reviewed and agree with the information entered by the scribe. Coding Level of Care Code Est Pt Level 4 (64684) Diagnoses Bursitis of left shoulder M75.52 Lumbar facet arthropathy M47.816
== END 2023-03-05 08:41 | disposition home or self-care (01) ==
PROVIDERS: PCP Internal Medicine; Visit Provider Internal Medicine
DX: M75.52 Bursitis of left shoulder (principal); M47.816 Spondylosis without myelopathy or radiculopathy, lumbar region
CPT/HCPCS: 99214

== ENCOUNTER → 2023-03-05 08:01 | Outpatient (BNVA) | payer OTHER, SELFPAY | PROVIDERS: PCP Internal Medicine; Visit Provider Internal Medicine ==

== ENCOUNTER → 2023-03-11 07:50 | Outpatient (REF) | payer MEDICARE, SELFPAY ==
--- NOTE | 2023-03-11 07:57 | CA_ITS ---
Transthoracic Echocardiogram Patient (Last, First, Middle): Deangelo Martinez J Gender: Male Date of : 1950 Age: 72 Procedure Date: 03/11/2023 Procedure Type: Transthoracic Echocardiogram Location: OP Height: 162.56 cm Weight: 81.65 kg BSA: 1.87 m2 Heart Rate: bpm BP: 130 / 68 mmHg Furniture Finisher: TO Referring MD: Misha Ma MD Consulting Services Project Manager: Misha Ma MD Symptoms: R06.02 - Shortness of breath Study Quality: Fair/contrast ECG Rhythm: Sinus Conclusions: - 1. Normal LV ejection fraction at 60-65% with impaired relaxation filling pattern 2. Normal cardiac valvular Dopplers 3. Normal RV systolic pressure 4. No gross pericardial effusion Findings Procedure Information Contrast agent, definity, is being given per protocol without apparent complications. Left Ventricle Normal left ventricular size, thickness, and systolic function. The visually estimated ejection fraction is between 60-65%. Spectral Doppler is indicative of an impaired relaxation filling pattern. E/E prime ratio is between 8 and 15 consistent with indeterminate filling pressures. There is moderate septal asymmetric hypertrophy. Right Ventricle Normal right ventricular cavity size and systolic function. Atria Both atria are normal in size. There is no evidence of interatrial shunt. Aortic Valve There is mild calcification of the aortic valve. There is mild thickening of the aortic valve. There is no aortic valve stenosis. There is no aortic valve regurgitation. Mitral Valve There is mild anterior and posterior mitral leaflet thickening. There is mild posterior mitral annular calcification. There is trace mitral valve regurgitation. There is no mitral valve stenosis. Pulmonic Valve The pulmonic valve was not well visualized. Tricuspid Valve Likely normal tricuspid valve structure and function. There is trace tricuspid valve regurgitation. The right ventricular systolic pressure is normal. The right ventricular systolic pressure is 17 mmHg. Normal right atrial pressure. There is no evidence of pulmonary hypertension. Great Vessels The pulmonary artery was not well visualized. There is no dilatation of the ascending aorta. Venous The inferior vena cava is normal in size and collapses greater than 50% with inspiration. Pericardium/Pleural There is no evidence of pericardial effusion. Measurements 2D Linear Measurements IVSd: 1.70 0.6-0.9/0.6-1.0 cm LVIDd: 4.10 3.9-5.3/4.2-5.9 cm LVIDd Index: 2.19 2.4-3.2/2.2-3.1 cm/m2 LVIDs: 2.60 2.0-3.6 cm LVPWd: 0.90 0.7-1.1 cm LA Diam: 3.20 2.7-3.8/3.0-4.0 cm LAIDs Index: 1.71 1.5-2.3 cm/m2 LV Mass: 241.12 67-162/88-224 g LV Mass Index: 128.94 43-95/49-115 g/m2 LVOT Diam: 2.00 3.0+(-)1.3 cm 2D Systolic Function EF 4C: 62.50 >55% EF 2C: 62.40 >55% EF BiP: 62.00 >55% Mitral Valve MV Pk E: 0.71 MV PK A: 0.75 MV Decel Time: 191.00 E/A: 0.90 E'Lateral: 6.85 E'Medial: 4.68 E/E' Med: 15.10 E/E' Lat: 10.30 PHT: 56.00 MVA PHT: 3.93 Decel Sanders: 3.70 Aortic Valve AoV Pk Fletcher: 1.28 AoV Mn Fletcher: 0.83 AoV VTI: 0.30 AoV Pk Grad: 7.00 Aov Mn Grad: 3.00 PRINCESS Cont.VTI: 2.26 LVOT LVOT Pk Fletcher: 0.93 LVOT Mn Fletcher: 0.57 LVOT VTI: 0.22 LVOT Pk Grad: 3.00 LVOT Mn Grad: 2.00 LVOT Diam: 2.00 LVOT Area: 3.14 Diastolic Function MV Pk E: 0.71 MV Pk A: 0.75 E/A: 0.90 E'Medial: 4.68 E/E' Med: 15.10 E' Laterial: 6.85 E/E' Lat: 10.30 Right Ventricle TAPSE (mm): 26.70 TVS' Fletcher: 10.00 Tricuspid Valve TR Pk Fletcher: 1.48 TR Pk Grad: 9.00 RA Press: 8.00 RVSP: 17.00 Great Vessels Aorta Sinus of Valsalva: 3.90 2.0-3.5 cm Ao Asc: 3.10 2.1-3.4 cm Updated in Other Vendor System with Status of Final Misha Ma MD electronically signed on 03/12/2023 10:00:39 AM with status of Final
== END ==
LOC: HO.CARD 07:50
PROVIDERS: PCP Internal Medicine; Visit Provider Internal Medicine Cardiovascular Disease
DX: R06.02 Shortness of breath (principal)
CPT/HCPCS: 93306; Q9957

== ENCOUNTER → 2023-03-11 07:57 | Outpatient (BNV) | payer MEDICARE, SELFPAY | PROVIDERS: PCP Internal Medicine; Visit Provider Internal Medicine Cardiovascular Disease | DX: I34.81 Nonrheumatic mitral (valve) annulus calcification (principal) | CPT/HCPCS: 93306 ==

== ENCOUNTER 2023-03-19 07:49 | Outpatient (AMB) | payer OTHER, MEDICARE, SELFPAY ==
--- NOTE | 2023-03-19 07:58 | MHC.OFFVIS ---
Intake Vital Signs 03/19/23 07:59 Height 5 ft 4 in Weight 187 lb BMI 32.1 BP 144/69 H Blood Pressure Location Rt brachial Position Sitting Respiration 14 Pulse 63 Pulse Source Pulse Oximeter Pulse Oximetry (%) 96 Oxygen Delivery Method Room Air Intake Visit Reasons: Right bicipital groove/subacromial inj Allergies milk [MILK] Adverse Reaction (Mild, Verified 03/19/23 08:00) CONGESTION Medication List - Last Reconciled 03/19/23 by Kesha Osborn LPN amlodipine 10 mg (2 x 5 mg) PO DAILY aspirin (Adult Low Dose Aspirin) 81 mg PO DAILY atorvastatin 40 mg PO DAILY 90 days nitroglycerin 0.4 mg sublingual Q5M PRN HPI Right bicipital groove/subacromial inj HPI Details 72-year-old male is presenting today for a right bicipital groove and subacromial injection. Patient presents for scheduled procedure. Denies any recent cough, cold, infection, fever or other significant changes in medical history since last office visit. Past Procedures: 02/03/23: Lumbar Intra-articular Facet Injections, Bilateral, L4/L5, L5/S1: >75% relief. 10/08/21: Bilateral L4 TFESI ? 10 to 20% relief. 07/30/21: Right L3-L4-L5 RFA ? 90% relief, resolution of leg symptoms, likely secondary to obliteration of compressive synovial cyst 04/02/21: Right Diagnostic L3, L4 DRL5 MBB - >75% relief for about 2 days post-procedure. 01/14/21: Bilateral L4-L5 TFESI - 80% improvement on the left side, unsure about the right. [facility] Medical History Coronary artery arteriosclerosis HLD (hyperlipidemia) Lumbar radiculitis Spinal stenosis, lumbar region with neurogenic claudication Surgical History History of back surgery History of carpal tunnel surgery Hx of appendectomy Hx of cardiac cath (~01/2016) Hx of knee surgery (~08/2016) Hx of tonsillectomy Stented coronary artery Family History Father CVD (cardiovascular disease) Mother No problems noted. Social History Alcohol intake: never Patient Tobacco Use Status: Former Tobacco user Years Smoked: 5 years only quit at age 21 Review of Systems Const All systems reviewed & are unremarkable except as noted in HPI and below Physical Exam Vital Signs: Last Vital Signs Pulse 63 03/19/23 07:59 Resp 14 03/19/23 07:59 BP 144/69 H 03/19/23 07:59 Pulse Ox 96 03/19/23 07:59 Oxygen Delivery Method Room Air 03/19/23 07:59 BMI result Body Mass Index 32.1 General: Appears afebrile. Alert and oriented. Mood and affect appropriate. Follows and participates in conversation appropriately. Respiratory effort is unlabored. Able to transition from sit to stand unassisted. Ambulates with bilaterally normal heel strike and toe off. Office Procedures Joint Injection/Drain Joint Injection/Drain Details: Right bicipital groove and subacromial injection - US guided Primary Site: right shoulder Prep: site was prepped using aseptic technique and site was prepped using sterile technique Injected: 20 mg of, Kenalog, with 3 mL of, 0.25% bupivacaine, in the subcromial space and other (bicipital groove) Approach Used: posterolateral Procedure: The patient tolerated the procedure well Coding Details: An ultrasound image of the injection was stored in the permanent record. - Bicipital Groove Injection - Acromioclavicular with ultrasound guidance Procedure code (CPT) selection complete Results Reviewed Results Reviewed: 03/19/23 09:00 BUPivacaine MPF 0.5 % [Sensorcaine MPF 0.5% 10 ML] 10 ml .ROUTE .STK-MED ONE Lidocaine HCl 2 % MPF [Xylocaine 2 % MPF] 5 ml .ROUTE .STK-MED ONE Triamcinolone Acetonide [Kenalog-40] 40 mg .ROUTE .STK-MED ONE No imaging is available for review. Assessment & Plan Assessment & Plan (1) Impingement syndrome, shoulder, left: Code(s): M75.42 - Impingement syndrome of left shoulder (2) Bursitis of left shoulder: Code(s): M75.52 - Bursitis of left shoulder Plan Patient is status post right bicipital groove and subacromial injection. Patient tolerated procedure well and was discharged home in stable condition with discharge instructions. All questions were answered. We will follow-up in two weeks via telephone or in clinic to assess response to therapy. A follow-up appointment was made during today's visit. Scribed for Dr. De La Cruz by Hilario Bautista, medical technologist hematology, on 03/19/2023. I, Dr. De La Cruz, have personally reviewed and agree with the information entered by the scribe. Coding Level of Care Code Procedure Only Diagnoses Impingement syndrome, shoulder, left M75.42 Bursitis of left shoulder M75.52 CPT Codes Coding - Joint 1: 36854 - Bicipital Groove Injection ([id number]) Coding - Joint 6: 97558 - Acromioclavicular with ultrasound guidance ([id number])
[2023-03-19 07:59] VITALS: BP 144/69; PULSE 63; RESP 14; O2SAT 96; BMI 32.1
== END 2023-03-19 08:37 | disposition home or self-care (01) ==
PROVIDERS: PCP Internal Medicine; Visit Provider Internal Medicine
DX: M75.41 Impingement syndrome of right shoulder (principal)
CPT/HCPCS: 20611

== ENCOUNTER → 2023-03-19 07:49 | Outpatient (BNVA) | payer MEDICARE, SELFPAY | PROVIDERS: PCP Internal Medicine; Visit Provider Internal Medicine | DX: M25.811 Other specified joint disorders, right shoulder (principal) | CPT/HCPCS: 20611; J3301 ==

== ENCOUNTER → 2023-03-23 07:43 | Outpatient (REF) | payer MEDICARE, SELFPAY ==
--- NOTE | ~2023-03-23 | NM_ITS ---
EXERCISE MYOCARDIAL PERFUSION STUDY INDICATION: Shortness of breath, coronary disease, assess for ischemia TECHNIQUE: The patient was brought in for an exercise perfusion study on 03/23/2023. Patient performed exercise as per Cristian protocol and was injected 25 mCi of sestamibi once target heart rate was achieved. Images were obtained using the SPECT gamma camera interlaced with the gating device. Images were obtained in supine position. Resting perfusion study was performed on 03/24/2023. Patient was administered 25 mCi of sestamibi intravenously at rest. Images were then obtained in supine position. Images were processed with the software and compared side to side in short axis, horizontal long axis and vertical long axis views. Total DLP 90mGy-cm. FINDINGS: Raw images were reviewed. The stress perfusion study showed mildly diminished tracer uptake in the basal part of inferior wall. There is also reduced uptake in the distal part of lateral wall. With CT attenuation correction the basal inferior wall uptake show some improvement. The lateral defect still present but less prominent. The gated study shows normal LV systolic function with calculated LVEF of 73%. LV cavity is normal in size. The gated study shows reduced distal lateral wall thickening. Resting study shows no significant perfusion abnormality. Gating at rest reveals normal wall motion with ejection fraction at 76%. The findings are consistent with mild to moderate intensity reversible defect in the distal lateral wall. NM/NM cardiolite stress test IMPRESSION: 1. Myocardial perfusion imaging study shows distal lateral wall ischemia. 2. Gated LVEF is > 70% during stress and rest. 3. Transient ischemic dilatation not present. EKG component of the test reported separately.
--- NOTE | 2023-03-23 07:47 | CA_ITS ---
Acquisition Time: 2023-03-23 07:45:19 Total Exercise Time: 00:07:33 Test Indications: SOB, SB Medications: SEE H Protocol: VEGA Max HR: 127 BPM 85% of Pred: 148 BPM Max BP: 190/060 mmHG Max Work Load: 9.4 METS Exercise stress test exercise 7 min 33 sec of Vega protocol achieving 85% MPHR, with moderate SOB, no chest discomfort, with BPs drop at 50 sec recovery from 170 systolic to 150 systolic and up to 190 systolic at 3 min recovery without lightheadedness, with isolated PACs, without EKG changes. Breathing returned to normal with rest. Nuclear images pending. Test reviewed with Dr. Madison. Referred By: Misha Ma Overread By: Bee Floyd
== END ==
LOC: HO.CARD 07:43
PROVIDERS: PCP Internal Medicine; Visit Provider Internal Medicine Cardiovascular Disease
DX: R07.9 Chest pain, unspecified (principal); R06.02 Shortness of breath
CPT/HCPCS: 78452; 93017; A9500

== ENCOUNTER → 2023-03-23 07:47 | Outpatient (BNV) | payer MEDICARE, SELFPAY | PROVIDERS: PCP Internal Medicine; Visit Provider Nurse Practitioner | DX: I25.10 Atherosclerotic heart disease of native coronary artery without angina pectoris (principal) | CPT/HCPCS: 78452; 93016; 93018 ==

== ENCOUNTER 2023-04-02 13:38 | Outpatient (AMB) | payer MEDICARE, SELFPAY ==
[2023-04-02 14:13] VITALS: BP 130/60; PULSE 56; BMI 31.6
--- NOTE | 2023-04-02 14:13 | A.OFFVIS_ITS ---
Intake Vital Signs 04/02/23 14:13 Height 5 ft 4 in Weight 184 lb 4.903 oz BMI 31.6 BP 130/60 Blood Pressure Location Lt brachial Position Sitting Pulse 56 Pulse Source Pulse Oximeter Intake Visit Reasons: 6 week f/u after testing Intake Note: 6 week f/u Allergies milk [MILK] Adverse Reaction (Mild, Verified 04/02/23 14:18) CONGESTION Medication List - Last Reconciled 04/02/23 by Elvira Araujo, HEATH-C amlodipine 10 mg (2 x 5 mg) PO DAILY aspirin (Adult Low Dose Aspirin) 81 mg PO DAILY atorvastatin 40 mg PO DAILY 90 days nitroglycerin 0.4 mg sublingual Q5M PRN omeprazole 20 mg PO DAILY HPI 6 week f/u after testing HPI Details Deangelo is a 72-year-old male past medical history obesity, hyperlipidemia, coronary artery disease with RCA stent who reported shortness of breath on last visit and underwent a stress test and echocardiogram. His metoprolol had been stopped due to possible chronotropic incompetence. His heart rate at that visit was 48. Holter monitor was ordered however not completed yet by patient. Today he reports he is feeling much better than he did on last visit. He says his shortness of breath has greatly improved. Has better activity tolerance and tells me he is able to walk to his corner store and back without stopping. No chest tightness like he had in the past prior to his RCA stent. No palpitations, dizziness, presyncope, syncope, PND, orthopnea or edema. Taking meds as directed. [facility] Medical History (Updated 04/02/23 @ 17:13 by Elvira Araujo, HEATH-C) Spinal stenosis, lumbar region with neurogenic claudication Lumbar radiculitis HLD (hyperlipidemia) Coronary artery arteriosclerosis Surgical History (Updated 04/02/23 @ 17:09 by Elvira Araujo, HEATH-C) Stented coronary artery History of carpal tunnel surgery Hx of tonsillectomy Hx of appendectomy History of back surgery Hx of knee surgery (~08/2016) Hx of cardiac cath (~01/2016) Family History Father CVD (cardiovascular disease) Mother No problems noted. Social History Alcohol intake: never Patient Tobacco Use Status: Former Tobacco user Years Smoked: 5 years only quit at age 21 Review of Systems Const All systems reviewed & are unremarkable except as noted in HPI and below ENT Denies dizziness Card Details: Shortness of breath improving Denies chest pain, Denies chest pain at rest, Denies chest pain with activity, Denies rapid heart rate, Denies pedal edema, Denies edema, Denies leg edema, Denies lightheadedness, Denies palpitations, Denies dyspnea, Denies dyspnea on exertion and Denies orthopnea Resp Denies cough, Denies dyspnea and Denies dyspnea on exertion GI Denies hematochezia and Denies change in stool character Musc Denies abnormal gait, Denies limited range of motion, Denies muscle cramps, Denies muscle weakness, Denies numbness, Denies radiating pain into limb, Denies stiffness and Denies tingling Neuro Denies abnormal gait, Denies dizziness, Denies numbness and Denies tingling Endo Denies palpitations Physical Exam Vital Signs: Last Vital Signs Pulse 56 04/02/23 14:13 BP 130/60 04/02/23 14:13 BMI result Body Mass Index 31.6 Const General: cooperative, healthy appearing, comfortable and no acute distress Orientation/consciousness: patient oriented x3 Neck Neck: Yes normal visual inspection Resp Effort & Inspection: normal respiratory effort Auscultation: clear to auscultation bilaterally, no crackles, no rales, no rhonchi and no wheezes Cardio Jugular venous distension: no JVD Rate: regular rate Rhythm: regular rhythm Heart sounds: S1 normal heart sound present, S2 normal heart sound present, no murmurs and no rubs Neuro General: patient oriented x3 Extrem General: Yes normal to inspection Psych Appearance: grossly normal Mental Status: mental status grossly normal Speech and movement: Normal speech and movement present Assessment & Plan Assessment & Plan (1) SOB (shortness of breath) on exertion: Code(s): R06.02 - Shortness of breath Plan: Report of shortness of breath with activity on last visit. His prior angina was chest tightness with activity. He was noted to have a low heart rate, 48. His metoprolol was weaned and stopped due to possible chronotropic incompetence. A Holter monitor was ordered however not completed yet by patient. A nuclear stress test done 03/23/2023 showed exercise 7.5 minutes with moderate shortness of breath, no EKG changes, achieving 85% mph are, nuclear imaging showing distal lateral ischemia, EF 70%. His echocardiogram done 03/11/2023 showed EF 60-65%, no valve abnormalities. Today he reports that his breathing is much improved. He reports better activity tolerance. Test results discussed with him. Instructed to obtain Holter so that heart rates can be further evaluated. Heart rate 56 on this visit. Signs and symptoms of angina reviewed. He is on aspirin indefinitely. Atorvastatin 40 mg daily with ideal LDL goal less than 70 and amlodipine 10 mg daily. He will remain off beta-brady. Instructed to notify this office if he has any change in symptoms. Cardiology follow-up in 3 months for re-evaluation of symptoms and to go over Holter monitor results. (2) Coronary artery arteriosclerosis: Code(s): I25.10 - Atherosclerotic heart disease of [place] coronary artery without angina pectoris Plan: History of CAD with RCA stent. Recent cardiac testing as above. He is reporting feeling better with improved activity tolerance, no anginal symptoms. Will continue with medical management at present (3) Stented coronary artery: Comment: proximal RCA Code(s): Z95.5 - Presence of coronary angioplasty implant and graft (4) HLD (hyperlipidemia): Comment: ideal LDL goal less than 70 and patient with known CAD. Labs 02/12/2020 show LDL 46. Continue on moderate dose statin. Code(s): E78.5 - Hyperlipidemia, unspecified Qualifiers: Hyperlipidemia type: unspecified Qualified Code(s): E78.5 - Hyperlipidemia, unspecified Plan: [place] LDL goal less than 70. Labs done 02/22/2023 shows LDL 51. Continue atorvastatin 40 mg daily Medications: New amlodipine 10 mg PO DAILY 90 tabs 3RF Discontinued amlodipine Discontinued Reason: Doctor's Order 10 mg (2 x 5 mg) PO DAILY 180 tabs 3RF I25.10 - Atherosclerotic heart disease of [place] coronary artery without angina pectoris Coding Level of Care Code Est Pt Level 4 (83324) Diagnoses SOB (shortness of breath) on exertion R06.02 Coronary artery arteriosclerosis I25.10 Stented coronary artery Z95.5 Hyperlipidemia, unspecified hyperlipidemia type E78.5 Hyperlipidemia type: unspecified Time Spent (min) 26
== END 2023-04-02 14:40 | disposition home or self-care (01) ==
PROVIDERS: PCP Internal Medicine; Referring Provider Internal Medicine; Visit Provider Nurse Practitioner Family
DX: R06.02 Shortness of breath (principal); I25.10 Atherosclerotic heart disease of native coronary artery without angina pectoris; Z95.5 Presence of coronary angioplasty implant and graft; E78.5 Hyperlipidemia, unspecified
CPT/HCPCS: 99214

== ENCOUNTER → 2023-04-02 13:38 | Outpatient (BNVA) | payer MEDICARE, SELFPAY | PROVIDERS: PCP Internal Medicine; Referring Provider Internal Medicine; Visit Provider Nurse Practitioner Family | DX: R06.02 Shortness of breath (principal); I25.10 Atherosclerotic heart disease of native coronary artery without angina pectoris; E78.5 Hyperlipidemia, unspecified; Z79.82 Long term (current) use of aspirin; Z79.899 Other long term (current) drug therapy; Z95.5 Presence of coronary angioplasty implant and graft | CPT/HCPCS: 99212 ==

== ENCOUNTER 2023-07-30 09:55 | Outpatient (AMB) | payer MEDICARE, SELFPAY ==
--- NOTE | 2023-07-30 10:03 | A.OFFVIS_ITS ---
Intake Vital Signs 07/30/23 10:04 Height 5 ft 4 in Weight 184 lb BMI 31.6 BP 131/67 Blood Pressure Location Rt brachial Position Sitting Respiration 12 Pulse 66 Pulse Source Pulse Oximeter Pulse Oximetry (%) 97 Oxygen Delivery Method Room Air Intake Visit Reasons: right bicipital groove/subacromial inj/lvm Allergies milk [MILK] Adverse Reaction (Mild, Verified 07/30/23 10:13) CONGESTION HPI right bicipital groove/subacromial inj/lvm HPI Details 73-year-old male who presents today to t he office for a right bicipital groove and subacromial injection. The patient reports 60-70% relief following the last procedure. He states that his pain returned to baseline about 3?4 weeks ago and kept worsening. He also continues to have back pain and right-sided leg pain. He denies any pain on the left side. He has difficulty sleeping due to pain. He took extra-strength Tylenol with no benefit. He denies any recent cough, cold, infection, fever or other significant changes in medical history since last office visit. Past Procedures: 03/19/23: Right bicipital groove and sub acromial injection - US guided: 60-70% relief. 02/03/23: Lumbar Intra-articular Facet I njections, Bilateral, L4/L5, L5/S1: >75% relief. 10/08/21: Bilateral L4 TFESI ? 10 to 20% relief. 07/30/21: Right L3-L4-L5 RFA ? 90% relief, resolution of leg symptoms, likely secondary to obliteration of compressive synovial cyst 04/02/21: Right Diagnostic L3, L4 DRL5 MBB - >75% relief for about 2 days post- procedure. 01/14/21: Bilateral L4-L5 TFESI - 80% imp rovement on the left side, unsure about the right. [facility] Medical History Spinal stenosis, lumbar region with neurogenic claudication Lumbar radiculitis HLD (hyperlipidemia) Coronary artery arteriosclerosis Surgical History Stented coronary artery History of carpal tunnel surgery Hx of tonsillectomy Hx of appendectomy History of back surgery Hx of knee surgery (~08/2016) Hx of cardiac cath (~01/2016) Family History Father CVD (cardiovascular disease) Mother No problems noted. Social History Alcohol intake: never Patient Tobacco Use Status: Former Tobacco user Years Smoked: 5 years only quit at age 21 Review of Systems Const All systems reviewed & are unremarkable except as noted in HPI and below Physical Exam Vital Signs: Last Vital Signs Pulse 66 07/30/23 10:04 Resp 12 07/30/23 10:04 BP 131/67 07/30/23 10:04 Pulse Ox 97 07/30/23 10:04 Oxygen Delivery Method Room Air 07/30/23 10:04 BMI result Body Mass Index 31.6 General: Appears afebrile. Alert and oriented. Mood and affect appropriate. Follows and participates in conversation appropriately. Respiratory effort is unlabored. Able to transition from sit to stand unassisted. Ambulates with bilaterally normal heel strike and toe off. Office Procedures Joint Injection/Drain Joint Injection/Drain Details: Right bicipital groove and subacromial injection - US guided Primary Site: right shoulder Prep: site was prepped using aseptic technique and site was prepped using sterile technique Injected: 20 mg of, Kenalog, with 3 mL of, 0.25% bupivacaine, in the subcromial space and other (bicipital groove) Approach Used: posterolateral Procedure: The patient tolerated the procedure well Coding Details: An ultrasound image of the injection was stored in the permanent record. - Bicipital Groove Injection - Acromioclavicular with ultrasound guidance Procedure code (CPT) selection complete Results Reviewed Results Reviewed: No imaging is available for review. Assessment & Plan Assessment & Plan (1) Impingement syndrome, shoulder, left: Code(s): M75.42 - Impingement syndrome of left shoulder (2) Bursitis of left shoulder: Code(s): M75.52 - Bursitis of left shoulder Plan Patient is status post right bicipital groove and subacromial injection - US guided. Patient tolerated procedure well and was discharged home in stable condition with discharge instructions. All questions were answered. We will follow-up in two weeks via telephone or in clinic to assess response to therapy. A follow-up appointment was made during today's visit. Will schedule him for a right L3-L4-L5 RFA. Discussed the risks and benefits of the procedure with the patient in detail. All questions were answered. The patient is on board with the plan. Justification for interventional therapy: ? Patient with average pain > 6/10 ? Patient has exhausted conservative therapy ? Patient unable to tolerate physical therapy due to pain ? Last RFA provided 90% relief for 1 1/[address] De La Cruz by Hilario Bautista, director biomedical engineering, on 07/30/2022. I, Dr. De La Cruz, have personally reviewed and agree with the information entered by the scribe. Coding Level of Care Code Procedure Only Diagnoses Impingement syndrome, shoulder, left M75.42 Bursitis of left shoulder M75.52 CPT Codes Coding - Joint 1: 86705 - Bicipital Groove Injection ([id number]) Coding - Joint 6: 38807 - Acromioclavicular with ultrasound guidance ([id number])
[2023-07-30 10:04] VITALS: BP 131/67; PULSE 66; RESP 12; O2SAT 97; BMI 31.6
== END 2023-07-30 11:08 | disposition home or self-care (01) ==
PROVIDERS: PCP Internal Medicine; Visit Provider Internal Medicine
DX: M75.42 Impingement syndrome of left shoulder (principal); M75.52 Bursitis of left shoulder
CPT/HCPCS: 20606

== ENCOUNTER → 2023-07-30 09:55 | Outpatient (BNVA) | payer MEDICARE, SELFPAY | PROVIDERS: PCP Internal Medicine; Visit Provider Internal Medicine | DX: M75.41 Impingement syndrome of right shoulder (principal); M75.51 Bursitis of right shoulder | CPT/HCPCS: 20606; J0665; J3301 ==

== ENCOUNTER 2023-08-09 13:49 | Outpatient (AMB) | payer MEDICARE, SELFPAY ==
[2023-08-09 13:51] VITALS: BP 118/66; PULSE 58; BMI 31.4
--- NOTE | 2023-08-09 13:51 | MHC.OFFVIS ---
Intake Vital Signs 08/09/23 13:51 Height 5 ft 4 in Weight 182 lb 15.739 oz BMI 31.4 BP 118/66 Blood Pressure Location Lt brachial Position Sitting Pulse 58 Intake Visit Reasons: r/s 3M follow up Intake Note: 3 month follow-up c/o fatigue [employer] Required: No Allergies milk [MILK] Adverse Reaction (Mild, Verified 07/30/23 10:13) CONGESTION Medication List - Last Reconciled 08/09/23 by Misha Ma MD amlodipine 10 mg PO DAILY aspirin (Adult Low Dose Aspirin) 81 mg PO DAILY atorvastatin 40 mg PO DAILY 90 days nitroglycerin 0.4 mg sublingual Q5M PRN omeprazole 20 mg PO DAILY HPI HPI Comments History of Present Illness Details Deangelo comes for follow-up. He is very vague about his symptoms. He says occasionally with exertion when he exerts himself he gets chest tightness sometimes he says he gets short of breath. He has not able to distinguish between the 2 symptoms. He is currently of metoprolol therapy. Symptoms have not increased or decreased since stopping the metoprolol therapy. Last LDL at 51 mg/dL. He is taking all his medications well. He overall does not think that this is affecting his lifestyle but he says the symptoms happen frequently. 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 Denies any heart failure symptoms. [facility] Medical History Spinal stenosis, lumbar region with neurogenic claudication Lumbar radiculitis HLD (hyperlipidemia) Coronary artery arteriosclerosis Surgical History Stented coronary artery History of carpal tunnel surgery Hx of tonsillectomy Hx of appendectomy History of back surgery Hx of knee surgery (~08/2016) Hx of cardiac cath (~01/2016) Family History Father CVD (cardiovascular disease) Mother No problems noted. Social History Alcohol intake: never Patient Tobacco Use Status: Former Tobacco user Years Smoked: 5 years only quit at age 21 Review of Systems Const Denies chills, Denies fatigue, Denies fever(s), Denies frequent falls, Denies weakness, Denies weight gain and Denies weight loss ENT Denies dizziness Card Denies chest pain, Denies leg edema, Denies lightheadedness, Denies palpitations, Denies dyspnea, Denies dyspnea on exertion, Denies orthopnea and Denies other (loss of consciousness) Resp Denies cough, Denies dyspnea and Denies dyspnea on exertion GI Denies hematochezia and Denies change in stool character Musc Denies abnormal gait, Denies muscle weakness, Denies numbness, Denies radiating pain into limb and Denies tingling Neuro Denies abnormal gait, Denies dizziness, Denies frequent falls, Denies numbness, Denies tingling and Denies weakness Endo Denies fatigue and Denies palpitations Physical Exam Vital Signs: Last Vital Signs Pulse 58 08/09/23 13:51 BP 118/66 08/09/23 13:51 BMI result Body Mass Index 31.4 Const General: cooperative, comfortable, no acute distress, alert and awake Nutritional Appearance: overweight Orientation/consciousness: patient oriented x3 Limitations: no limitations Neck Neck: Yes trachea midline and Yes no JVD Chest Chest palpation & inspection: normal inspection of the chest Resp Effort & Inspection: normal respiratory effort Auscultation: clear to auscultation bilaterally Cardio Jugular venous distension: no JVD Palpation: normal PMI Rate: regular rate Rhythm: regular rhythm Heart sounds: S1 normal heart sound present, S2 normal heart sound present and Other heart sounds present (S4 present) Skin General skin exam: no rashes or lesions noted Neuro General: patient oriented x3 and no focal motor deficits Extrem General: Yes no clubbing, cyanosis or edema Psych Appearance: grossly normal Assessment & Plan Assessment & Plan (1) Coronary artery arteriosclerosis: Code(s): I25.10 - Atherosclerotic heart disease of [place] coronary artery without angina pectoris Plan: Coronary artery disease with [place] symptoms, not clear whether patient is clearly having significant symptoms or limitations lifestyle but complains of both chest tightness and shortness of breath. He does have small area of distal lateral ischemia which could be in diagonal or OM territory. He does have moderate stenosis on prior cardiac catheterization this territory is likely that this could have progressed. However symptoms and area of ischemia small and prognostically not significant coronary disease. Will continue manage medically. Continue amlodipine therapy. He said he can not tolerate nitrate therapy due to severe headaches. With metoprolol he has bradycardia. Therefore the choice left is Ranexa, will start 500 mg b.i.d.. Follow-up in 8 weeks' time with EKG. Continue high-intensity statin therapy. Continue low-dose aspirin therapy. Advised to call me with any progressive symptoms. Will follow up in the clinic in 8 weeks time, sooner p.r.n.. Thank you for allowing me to partake in his care Medications: New ranolazine ER 500 mg PO Q12H 60 tabs 6RF Coding Level of Care Code Est Pt Level 4 (21806) Diagnoses Coronary artery arteriosclerosis I25.10
== END 2023-08-09 14:58 | disposition home or self-care (01) ==
PROVIDERS: PCP Internal Medicine; Visit Provider Internal Medicine Cardiovascular Disease
DX: I25.10 Atherosclerotic heart disease of native coronary artery without angina pectoris (principal)
CPT/HCPCS: 99214

== ENCOUNTER → 2023-08-09 13:49 | Outpatient (BNVA) | payer MEDICARE, SELFPAY | PROVIDERS: PCP Internal Medicine; Visit Provider Internal Medicine Cardiovascular Disease | DX: I25.10 Atherosclerotic heart disease of native coronary artery without angina pectoris (principal) | CPT/HCPCS: 99212 ==

== ENCOUNTER 2023-08-30 10:09 | Outpatient (AMB) | payer MEDICARE, SELFPAY ==
--- NOTE | 2023-08-30 10:11 | MHC.OFFVIS ---
Intake Vital Signs 08/30/23 10:12 Height 5 ft 4 in Weight 180 lb BMI 30.9 BP 145/73 H Blood Pressure Location Lt brachial Position Sitting Respiration 12 Pulse 82 Pulse Source Pulse Oximeter Pulse Oximetry (%) 96 Oxygen Delivery Method Room Air Intake Visit Reasons: Follow Up/Increased Shoulder Pain Allergies milk [MILK] Adverse Reaction (Mild, Verified 08/30/23 10:14) CONGESTION Medication List - Last Reconciled 08/30/23 by Kesha Osborn LPN amlodipine 10 mg PO DAILY aspirin (Adult Low Dose Aspirin) 81 mg PO DAILY atorvastatin 40 mg PO DAILY 90 days nitroglycerin 0.4 mg sublingual Q5M PRN omeprazole 20 mg PO DAILY ranolazine ER 500 mg PO Q12H HPI Follow Up/Increased Shoulder Pain HPI Details 73-year-old presents today to the office for a follow-up for increased pain in the shoulder. He states that he was sliding the school bus window and noticed a loud popping sound from the shoulder on 08/27/2023. He has difficulty lifting his arm or going sideways. Movements worsen the pain. He has had shoulder injections in the past with good effecr. Past Procedures: 07/30/22: Right bicipital groove and subacromial injection - US guided: 60-70% relief. 03/19/23: Right bicipital groove and subacromial injection - US guided: 60-70% relief. 02/03/23: Lumbar Intra-articular Facet Injections, Bilateral, L4/L5, L5/S1: >75% relief. 10/08/21: Bilateral L4 TFESI ? 10 to 20% relief. 07/30/21: Right L3-L4-L5 RFA ? 90% relief, resolution of leg symptoms, likely secondary to obliteration of compressive synovial cyst 04/02/21: Right Diagnostic L3, L4 DRL5 MBB - >75% relief for about 2 days post-procedure. 01/14/21: Bilateral L4-L5 TFESI - 80% improvement on the left side, unsure about the right. [facility] Medical History Spinal stenosis, lumbar region with neurogenic claudication Lumbar radiculitis HLD (hyperlipidemia) Coronary artery arteriosclerosis Surgical History Stented coronary artery History of carpal tunnel surgery Hx of tonsillectomy Hx of appendectomy History of back surgery Hx of knee surgery (~08/2016) Hx of cardiac cath (~01/2016) Family History Father CVD (cardiovascular disease) Mother No problems noted. Social History Alcohol intake: never Patient Tobacco Use Status: Former Tobacco user Years Smoked: 5 years only quit at age 21 Review of Systems Const All systems reviewed & are unremarkable except as noted in HPI and below Physical Exam Vital Signs: Last Vital Signs Pulse 82 08/30/23 10:12 Resp 12 08/30/23 10:12 BP 145/73 H 08/30/23 10:12 Pulse Ox 96 08/30/23 10:12 Oxygen Delivery Method Room Air 08/30/23 10:12 BMI result Body Mass Index 30.9 General: Appears afebrile. Alert and oriented. Mood and affect appropriate. Follows and participates in conversation appropriately. Respiratory effort is unlabored. Able to transition from sit to stand unassisted. Ambulates with bilaterally normal heel strike and toe off. Office Procedures Joint Injection/Drain Joint Injection/Drain Details: Right subacromial shoulder injection, under ultrasound guidance Primary Site: right shoulder Prep: site was prepped using aseptic technique and site was prepped using sterile technique Injected: 20 mg of, Kenalog, with 3 mL of (ropivacaine 0.5%) and in the subcromial space (on right side) Approach Used: posterolateral Procedure: there was some relief with the local anesthesia Coding Details: Note: An ultrasound image of the injection was taken and stored in the permanent record. - Acromioclavicular with ultrasound guidance (right, ultrasound guided) Procedure code (CPT) selection complete Joint Injection/Drain Joint Injection/Drain Details: Right glenohumeral joint steroid injection, ultrasound guided Primary Site: right shoulder Prep: site was prepped using aseptic technique and site was prepped using sterile technique Injected: 20 mg of, Kenalog, with 3 mL of (ropivacaine 0.5%) and in the joint Approach Used: anterolateral Procedure: The patient tolerated the procedure well Coding Details: Note: An ultrasound image of the injection was taken and stored in the permanent record. - Glenohumeral with ultrasound guidance (right, ultrasound guided) Procedure code (CPT) selection complete Results Reviewed Results Reviewed: No imaging is available for review. Assessment & Plan Assessment & Plan (1) Osteoarthritis of right shoulder: Code(s): M19.011 - Primary osteoarthritis, right shoulder Qualifiers: Osteoarthritis type: primary Qualified Code(s): M19.011 - Primary osteoarthritis, right shoulder (2) Calcific tendonitis of right shoulder: Code(s): M75.31 - Calcific tendinitis of right shoulder Plan Patient is status post right subacromial bursa injection and right glenohumeral injection, ultrasound guided. Patient tolerated procedure well and was discharged home in stable condition with discharge instructions. All questions were answered. Follow-up as needed. Scribed for Dr. De La Cruz by Hilario Bautista, medical records auditor, on 08/30/2023. I, Dr. De La Cruz, have personally reviewed and agree with the information entered by the scribe. Coding Level of Care Code Est Pt Level 3 (71971) Diagnoses Primary osteoarthritis of right shoulder M19.011 Osteoarthritis type: primary Calcific tendonitis of right shoulder M75.31 CPT Codes Coding - Joint 6: 13894 - Acromioclavicular with ultrasound guidance ([id number]) Coding - Joint 8: 36798 - Glenohumeral with ultrasound guidance ([id number])
[2023-08-30 10:12] VITALS: BP 145/73; PULSE 82; RESP 12; O2SAT 96; BMI 30.9
== END 2023-08-30 11:03 | disposition home or self-care (01) ==
PROVIDERS: PCP Internal Medicine; Visit Provider Internal Medicine
DX: M19.011 Primary osteoarthritis, right shoulder (principal); M75.31 Calcific tendinitis of right shoulder
CPT/HCPCS: 20606; 20611; 99213

== ENCOUNTER → 2023-08-30 10:09 | Outpatient (BNVA) | payer MEDICARE, SELFPAY | PROVIDERS: PCP Internal Medicine; Visit Provider Internal Medicine | DX: M19.011 Primary osteoarthritis, right shoulder (principal); M75.31 Calcific tendinitis of right shoulder | CPT/HCPCS: 20606; 20611; 99212; J2795; J3301 ==

== ENCOUNTER 2023-09-02 10:46 | Outpatient (REF) | payer MEDICARE, SELFPAY ==
[2023-09-02 10:51] LABS: MANUAL DIFF FLAG NO
[2023-09-02 11:35] LABS: Basophils Percent Auto 0.1 % (0-2); Eosinophils Percent Auto 0.4 % (0-4); Hematocrit 44.3 % (42.0-52.0); Hemoglobin 15.3 g/dl (14.0-18.0); Imm Gran Abs Auto 0.05 X10*3/uL (0.00-0.03); Imm Gran Pct Auto 0.5 % (0.0-0.4); Lymphocytes Absolute Auto 2.2 X10*3/uL (1.2-4.9); Lymphocytes Percent Auto 21.3 % (20-40); Mean Corpuscular HGB Conc 34.5 g/dl (31.0-36.0); Mean Corpuscular Hemoglobin 29.8 pg (27.0-33.0); Mean Corpuscular Volume 86.4 fL (80.0-98.0); Mean Platelet Volume 9.5 fL (9.4-12.4); Monocytes Absolute Auto 0.9 X10*3/uL (0.1-1.2); Monocytes Percent Auto 8.3 % (2-11); Neutrophils Absolute Auto 7.2 x10*3/uL (2.0-8.3); Neutrophils Percent Auto 69.4 % (45-73); Platelet Count 243 X10*3/uL (160-400); Red Blood Count 5.13 X10*6/uL (4.60-5.80); Red Cell Distribution Width 13.9 % (11.0-16.0); White Blood Count 10.3 X10*3/uL (4.8-10.8)
[2023-09-02 11:50] LABS: Alanine Aminotransferase 27 U/L (0-40); Albumin Level 4.2 g/dL (3.5-5.0); Alkaline Phosphatase 102 U/L (39-117); Anion Gap 12 (12-20); Aspartate Amino Transferase 20 U/L (5-37); Bilirubin Total 1.4 mg/dL (0.0-1.0); Blood Urea Nitrogen 21 mg/dL (9-16); Calcium 9.7 mg/dL (8.4-10.2); Carbon Dioxide 26 mmol/L (22-29); Chloride 105 mmol/L (96-108); Cholesterol 143 mg/dL (<200); Estimated Glomerular Filt Rate > 60; Glucose Fasting 105 mg/dL (60-99); HDL Cholesterol 50 mg/dL (>40); LDL Cholesterol Calculated 74 mg/dL (<100); Potassium 3.9 mmol/L (3.3-5.1); Sodium 139 mmol/L (135-145); Total Protein 7.2 g/dL (6.5-8.0); Triglycerides 99 mg/dL (<150)
[2023-09-02 11:52] LABS: Appearance Urine Clear; Color Urine Yellow; Glucose Urine UA Negative (Negative); Leukocyte Esterase Urine Negative (Negative); Nitrite Urine Negative (Negative); PH 5.5 (5.0-9.0); Urine Blood Negative (Negative); Urine Ketones Negative (Negative); Urine Protein Trace mg/dL (Neg-Trace)
[2023-09-02 11:59] LABS: Bacteria Urine None Seen (None Seen); Hyaline Casts Urine 0-2 /LPF (0-2); RBC Urine 0-2 /HPF (0-2); Squamous Epithelial Cell Urine 0-2 /HPF (0-2); WBC Urine 0-5 /HPF (0-5)
[2023-09-02 12:08] LABS: PSA,Total (Free>4and<10) 2.41 ng/mL (0.00-4.00)
== END 2023-09-02 10:47 | disposition home or self-care (01) ==
LOC: HO.LNP 10:46
PROVIDERS: Visit Provider Internal Medicine
DX: Z12.5 Encounter for screening for malignant neoplasm of prostate (principal); R79.89 Other specified abnormal findings of blood chemistry; E78.00 Pure hypercholesterolemia, unspecified
CPT/HCPCS: 80053; 80061; 81001; 84153; 85025

== ENCOUNTER 2023-11-09 10:42 | Outpatient (AMB) | payer MEDICARE, SELFPAY ==
[2023-11-09 10:48] VITALS: BP 110/70; PULSE 58; BMI 30.3
--- NOTE | 2023-11-09 10:48 | A.OFFVIS_ITS ---
Intake Vital Signs 11/09/23 10:48 Height 5 ft 4 in Weight 176 lb 5.917 oz BMI 30.3 BP 110/70 Blood Pressure Location Lt brachial Position Sitting Pulse 58 Intake Visit Reasons: follow-up with ekg after starting renexa Intake Note: Follow-up with ekg after starting renexa feeling good Cardiopulmonary Specialist Required: No Allergies milk [MILK] Adverse Reaction (Mild, Verified 08/30/23 10:14) CONGESTION Medication List - Last Reconciled 11/09/23 by Misha Ma MD amlodipine 10 mg PO DAILY aspirin (Adult Low Dose Aspirin) 81 mg PO DAILY atorvastatin 40 mg PO DAILY 90 days nitroglycerin 0.4 mg sublingual Q5M PRN omeprazole 20 mg PO DAILY ranolazine ER 500 mg PO Q12H sertraline 100 mg PO DAILY HPI HPI Comments History of Present Illness Details Deangelo comes for follow-up. He said he is feeling very well on Ranexa. His symptoms of exertional chest tightness and also shortness of breath improved and can go up and down stairs without any restrictions. He said he watches himself any over exerts and gets shortness of breath he relaxes and symptoms usually do not start. He has not having any side effects to current therapy. Tolerating his medications well. Denies any heart failure symptoms. Denies any prolonged palpitation irregular heartbeat. [facility] Medical History Spinal stenosis, lumbar region with neurogenic claudication Lumbar radiculitis HLD (hyperlipidemia) Coronary artery arteriosclerosis Surgical History Stented coronary artery History of carpal tunnel surgery Hx of tonsillectomy Hx of appendectomy History of back surgery Hx of knee surgery (~08/2016) Hx of cardiac cath (~01/2016) Family History Father CVD (cardiovascular disease) Mother No problems noted. Social History Alcohol intake: never Patient Tobacco Use Status: Former Tobacco user Years Smoked: 5 years only quit at age 21 Review of Systems Const Denies chills, Denies fatigue, Denies fever(s), Denies frequent falls, Denies weakness, Denies weight gain and Denies weight loss ENT Denies dizziness Card Denies chest pain, Denies leg edema, Denies lightheadedness, Denies palpitations, Denies dyspnea, Denies dyspnea on exertion, Denies orthopnea and Denies other (loss of consciousness) Resp Denies cough, Denies dyspnea and Denies dyspnea on exertion GI Denies hematochezia and Denies change in stool character Musc Denies abnormal gait, Denies muscle weakness, Denies numbness, Denies radiating pain into limb and Denies tingling Neuro Denies abnormal gait, Denies dizziness, Denies frequent falls, Denies numbness, Denies tingling and Denies weakness Endo Denies fatigue and Denies palpitations Physical Exam Vital Signs: Last Vital Signs Pulse 58 11/09/23 10:48 BP 110/70 11/09/23 10:48 BMI result Body Mass Index 30.3 Const General: cooperative, comfortable, no acute distress, alert and awake Nutritional Appearance: overweight Orientation/consciousness: patient oriented x3 Limitations: no limitations Neck Neck: Yes trachea midline and Yes no JVD Chest Chest palpation & inspection: normal inspection of the chest Resp Effort & Inspection: normal respiratory effort Auscultation: clear to auscultation bilaterally Cardio Jugular venous distension: no JVD Palpation: normal PMI Rate: regular rate Rhythm: regular rhythm Heart sounds: S1 normal heart sound present, S2 normal heart sound present and Other heart sounds present (S4 present) Skin General skin exam: no rashes or lesions noted Neuro General: patient oriented x3 and no focal motor deficits Extrem General: Yes no clubbing, cyanosis or edema Psych Appearance: grossly normal Office Procedures EKG Details: EKG shows normal sinus rhythm with right bundle-branch and left anterior fascic ular block [id number]-[id number], Complete Assessment & Plan Assessment & Plan (1) Coronary artery arteriosclerosis: Code(s): I25.10 - Atherosclerotic heart disease of [place] coronary artery without angina pectoris Plan: Coronary artery disease with prior stenting of the RCA with resolved symptoms of angina with small territory of ischemia on current dual therapy with amlodipine as well as Ranexa which is tolerating well. Discuss the comparison between interventional therapy with medical therapy and given his low risk scan in terms of prognosis provides the same long-term outcomes. This was discussed in. If he redevelops symptoms of angina on current medical therapy will pursue cardiac catheterization. This was discussed with him. Blood pressure is currently well optimized. Continue lifelong aspirin therapy. Continue current lipid modification therapy with goal LDL closer to 50 mg/dL. Advised to follow up lipid panel in future. Will follow up in the clinic in 6 months time, sooner p.r.n.. Thank you for allowing me to partake in his care Coding Level of Care Code Est Pt Level 4 (64992) Diagnoses Coronary artery arteriosclerosis I25.10 CPT Codes EKG - CPT: 43493-[id number], Complete ([id number])
== END 2023-11-09 11:06 | disposition home or self-care (01) ==
PROVIDERS: PCP Internal Medicine; Visit Provider Internal Medicine Cardiovascular Disease
DX: I25.10 Atherosclerotic heart disease of native coronary artery without angina pectoris (principal)
CPT/HCPCS: 93010; 99214

== ENCOUNTER → 2023-11-09 10:42 | Outpatient (BNVA) | payer MEDICARE, SELFPAY | PROVIDERS: PCP Internal Medicine; Visit Provider Internal Medicine Cardiovascular Disease | DX: I25.10 Atherosclerotic heart disease of native coronary artery without angina pectoris (principal) | CPT/HCPCS: 93005; 99212 ==

== ENCOUNTER 2024-02-25 07:12 | Day surgery (SDC) | payer MEDICARE, SELFPAY ==
[2024-02-23 13:58] VITALS: BMI 30.5
--- NOTE | 2024-02-24 09:23 | P.CONAN_ITS ---
Documented by User: Regine Galloway NP 02/24/24 09:31 HPI - Anesthesia Eval Consult details Narrative: 73yo M for Colonoscopy Follows [facility] cardiology for CAD s/p stent 2015. Stable on ranexa and amlodipine at last office visit 10/2023. [facility] Active Problems Active Problems: All Active Problems Calcific tendonitis of right shoulder (Acute) Osteoarthritis of right shoulder (Acute) History of carpal tunnel release of both wrists (Acute) Carpal tunnel syndrome of left wrist (Acute) Carpal tunnel syndrome of right wrist (Acute) SOB (shortness of breath) on exertion (Acute) Impingement syndrome, shoulder, left (Acute) Bursitis of left shoulder (Acute) Sinus bradycardia (Acute) Lumbar facet arthropathy (Acute) Pre-procedural laboratory examination (Acute) Spondylosis of lumbar region without myelopathy or radiculopathy (Acute) Stable angina (Acute) Stented coronary artery (Acute) Spinal stenosis, lumbar region with neurogenic claudication (Acute) Lumbar radiculitis (Acute) HLD (hyperlipidemia) (Acute) Coronary artery arteriosclerosis (Acute) Past Medical History Medical History Hepatitis A infection Anxiety Spinal stenosis, lumbar region with neurogenic claudication Lumbar radiculitis HLD (hyperlipidemia) Coronary artery arteriosclerosis Family History Family History Father CVD (cardiovascular disease) Mother No problems noted. Surgical History Surgical History Stented coronary artery History of carpal tunnel surgery Hx of tonsillectomy Hx of appendectomy History of back surgery Hx of knee surgery (~08/2016) Hx of cardiac cath (~01/2016) Social History Social History Alcohol intake: never Patient Tobacco Use Status: Former Tobacco user Years Smoked: 5 years only quit at age 21 Use of substances other than those prescribed or required for medical reasons: No Are you DNR?: No Advance Directives: No Advance Directives Information Provided: Yes Meds Allergies Allergy/AdvReac Type Severity Reaction Status Date / Time milk [MILK] AdvReac Mild CONGESTION Verified 08/30/23 10:14 Home Medications ?Medication ?Instructions ?Recorded ?Confirmed ?Last Taken ?Type aspirin 81 mg tablet,delayed 81 mg PO DAILY 05/02/20 02/23/24 Unknown History release (Adult Low Dose Aspirin) omeprazole 20 mg capsule,delayed 20 mg PO DAILY 04/02/23 02/23/24 Unknown History release sertraline 100 mg tablet 100 mg PO DAILY 11/09/23 02/23/24 Unknown History Exam Height,Weight and Vital Signs: Height 5 ft 4.25 in Weight 81.193 kg Narrative Narrative: EKG 10/2023 normal sinus rhythm with right bundle-branch and left anterior fascicular block Assessment and Plan Assessment Anesthesia Assessment: Chart Reviewed Documented by User: Kaitlin Arredondo MD 02/25/24 08:15 [facility] Past Medical History Medical History Hepatitis A infection Anxiety Spinal stenosis, lumbar region with neurogenic claudication Lumbar radiculitis HLD (hyperlipidemia) Coronary artery arteriosclerosis Family History Family History Father CVD (cardiovascular disease) Mother No problems noted. Family history of problems with anesthesia: No Surgical History Surgical History Stented coronary artery History of carpal tunnel surgery Hx of tonsillectomy Hx of appendectomy History of back surgery Hx of knee surgery (~08/2016) Hx of cardiac cath (~01/2016) History of Problems with Anesthesia: No Social History Social History Alcohol intake: never Patient Tobacco Use Status: Former Tobacco user Years Smoked: 5 years only quit at age 21 Use of substances other than those prescribed or required for medical reasons: No Are you DNR?: No Advance Directives: No Advance Directives Information Provided: Yes Meds Allergies Allergy/AdvReac Type Severity Reaction Status Date / Time milk [MILK] AdvReac Mild CONGESTION Verified 08/30/23 10:14 Home Medications ?Medication ?Instructions ?Recorded ?Confirmed ?Last Taken ?Type aspirin 81 mg tablet,delayed 81 mg PO DAILY 05/02/20 02/23/24 Unknown History release (Adult Low Dose Aspirin) omeprazole 20 mg capsule,delayed 20 mg PO DAILY 04/02/23 02/23/24 Unknown History release sertraline 100 mg tablet 100 mg PO DAILY 11/09/23 02/23/24 Unknown History Exam Airway Mallampati Class: II TM Dist: >3cm Neck ROM: Full Heart: rrr Lungs: cta Assessment and Plan Assessment Anesthesia Assessment: Anesthesia Plan Discussed Final Anesthetic Review Family History of Problems with Anesthesia: No History of Problems with Anesthesia: No NPO: Yes ASA Class: III Final Preanesthetic Review: No Changes in Pt Med Stat, Meds/Allgs Chart Reviewed, Consent Obtained/Reviewed and Anes Risks/Benef Reviewed Patient Risk: Intermediate Procedure Risk: Low Anesthetic Plan Anesthetic Plan: MAC: Disposition: Standard PACU
[2024-02-25 07:50] VITALS: BMI 30.1
--- NOTE | 2024-02-25 08:17 | MHC.SHP ---
Pre-Procedural Eval Section A - 24 Hr Update-Section A only Date of Service: 02/25/24 Section B - Complete if H&P > 30 days Chief Complaint: Encounter for screening for malignant neoplasm of Details of Present Illness: see H&P no changes Relevant Family History (Specify if Yes): No Relevant Social History: None Present Medications: None Medical History: Significant History History of Previous Operations: No relevant previous surgery Allergies: Allergies Allergy/AdvReac Type Severity Reaction Status Date / Time milk [MILK] AdvReac Mild CONGESTION Verified 08/30/23 10:14 Review of Systems Sugical H&P ROS: Negative: Constitution, Cardiovascular, Respiratory, Neurological, Psychiatric, Hem-Onc, Allergic/Immunologic, Gastrointestinal, Genitourinary, Musculoskeletal, Integumentary, Endocrine and Eyes/Ears/Nose/Throat Exam Surgical H&P Exam: Normal: HEENT, Normal: Heart, Normal: Lungs, Normal: Extremities, Normal: Abdomen, Normal: Skin and Normal: Neurological Plan Diagnosis/Plan: Unchanged I have reviewed the history and physical and performed a pertinent physical examination on my patient. No changes have occurred unless specified. Time Spent With Patient Time: Total time managing care of this patient today ____ minutes.
[2024-02-25] MEDS: Lactated Ringers 1,000 ML 100 ML IVCONT (08:24)
[2024-02-25 08:25] VITALS: BP 138/60; PULSE 68; RESP 16; TEMP 36.7; O2SAT 97
[2024-02-25 09:19] VITALS: BP 103/47; PULSE 59; RESP 16; TEMP 36.1; O2SAT 95
[2024-02-25 09:34] VITALS: BP 106/61; PULSE 63; RESP 16; O2SAT 97
[2024-02-25 09:48] VITALS: BP 116/62; PULSE 52; RESP 16; TEMP 36.2; O2SAT 98
--- NOTE | 2024-02-25 10:01 | OP_ITS ---
DATE OF SERVICE: 02/25/2024 SURGEON: Efrain Craig MD INDICATIONS: Colon cancer screening. PREOPERATIVE DIAGNOSIS: POSTOPERATIVE DIAGNOSIS: PROCEDURE PERFORMED: Colonoscopy to the terminal ileum. ESTIMATED BLOOD LOSS: COMPLICATIONS: ANESTHESIA: Monitored anesthesia care. ASSISTANTS: SPECIMENS: DESCRIPTION OF PROCEDURE: A history and physical was performed. The risks and benefits of the procedure were explained to the patient and informed consent was obtained. The patient was placed in the left lateral decubitus position. A digital rectal exam was performed and was found to be normal. The Olympus pediatric video colonoscope was introduced into the rectum and advanced to the cecum. The cecum was identified by transillumination, palpation, and identification of ileocecal valve. Examination was performed and the scope was removed. He tolerated the procedure well and was returned to recovery area in stable condition. FINDINGS: The terminal ileum was normal. The visualized colonic mucosa was normal. The quality of the prep was good. There was some liquid stool, which was washed and suctioned. No polyps were identified. Retroflexed examination showed small internal hemorrhoids. IMPRESSION: Normal colonoscopy. RECOMMENDATIONS: 1. Follow up as needed. 2. Repeat colonoscopy is recommended in 10 years for average-risk individuals. This is optional based on age. MD JONATHAN Dang/MODL / [phone]
== END 2024-02-25 10:25 | disposition home or self-care (01) ==
PROVIDERS: PCP Internal Medicine; Visit Provider Internal Medicine Gastroenterology
PROC: 0DJD8ZZ Inspection of Lower Intestinal Tract, Via Natural or Artificial Opening Endoscopic (ICD-10-PCS; CPT 45378; principal; 2024-02-25 09:10)
DX: Z12.11 Encounter for screening for malignant neoplasm of colon (principal); K64.8 Other hemorrhoids; R14.1 Gas pain; K76.0 Fatty (change of) liver, not elsewhere classified; I25.10 Atherosclerotic heart disease of native coronary artery without angina pectoris; Z95.5 Presence of coronary angioplasty implant and graft; E78.5 Hyperlipidemia, unspecified; M47.816 Spondylosis without myelopathy or radiculopathy, lumbar region; Z86.19 Personal history of other infectious and parasitic diseases; F41.9 Anxiety disorder, unspecified; Z79.82 Long term (current) use of aspirin; Z79.899 Other long term (current) drug therapy; Z87.891 Personal history of nicotine dependence; Z98.890 Other specified postprocedural states
CPT/HCPCS: G0121; J2704

== ENCOUNTER 2024-03-07 11:13 | Outpatient (REF) | payer MEDICARE, SELFPAY ==
[2024-03-07 12:45] LABS: Alanine Aminotransferase 16 U/L (0-40); Albumin Level 4.3 g/dL (3.5-5.0); Alkaline Phosphatase 130 U/L (39-117); Aspartate Amino Transferase 23 U/L (5-37); Bilirubin Direct 0.3 mg/dL (0.0-0.5); Bilirubin Total 1.1 mg/dL (0.0-1.0); Cholesterol 118 mg/dL (<200); HDL Cholesterol 36 mg/dL (>40); LDL Cholesterol Calculated 58 mg/dL (<100); Total Protein 7.1 g/dL (6.5-8.0); Triglycerides 124 mg/dL (<150)
[2024-03-07 13:03] LABS: Reflex LDLD? No
== END 2024-03-07 11:14 | disposition home or self-care (01) ==
LOC: HO.LNP 11:13
PROVIDERS: Visit Provider Internal Medicine
DX: E78.00 Pure hypercholesterolemia, unspecified (principal)
CPT/HCPCS: 80061; 80076

== ENCOUNTER 2024-03-16 13:40 | Outpatient (AMB) | payer MEDICARE, SELFPAY ==
[2024-03-16 13:54] VITALS: BP 114/52; PULSE 61; BMI 30.6
--- NOTE | 2024-03-16 13:54 | MHC.OFFVIS ---
Vital Signs 03/16/24 13:54 Height 5 ft 4 in Weight 178 lb 9.191 oz BMI 30.6 BP 114/52 L Blood Pressure Location Lt brachial Position Sitting Pulse 61 Pulse Source Pulse Oximeter Intake Visit Reasons: lightheadnessness,dizziness,low bp x5 days Study Manager Required: No Allergies milk [MILK] Adverse Reaction (Mild, Verified 03/16/24 13:58) CONGESTION Medication List - Last Reconciled 03/16/24 by Elvira Araujo NP-C amlodipine 10 mg PO DAILY aspirin (Adult Low Dose Aspirin) 81 mg PO DAILY atorvastatin 40 mg PO DAILY 90 days nitroglycerin 0.4 mg sublingual Q5M PRN omeprazole 20 mg PO DAILY ranolazine ER 500 mg PO Q12H sertraline 100 mg PO DAILY HPI HPI lightheadnessness,dizziness,low bp x5 days: Details: Deangelo is a 73-year-old male with past medical history of hyperlipidemia, CAD with RCA stent who requested on appointment for evaluation of low blood pressure. Today he reports that he was outside and patched his driveway on Sunday 03/11. The following morning he got up and says he was lightheaded and felt unsteady. His symptom improved throughout the morning. He continued to have some mild symptoms the following day. He did not notice lightheadedness in a laying down or sitting position. He tells me that he drinks plenty of liquids but may not have on 03/11. He saw his PCP on 03/14 and his office blood pressure was around 102 systolic. He was told to follow-up with his patient financial specialist. Since then he has been feeling better overall. He has been taking his medications right along. He has no chest discomfort at rest or with activity. No shortness of breath, PND, orthopnea or edema. No presyncope, syncope, falls. He does not check his blood pressure at home. [facility] Medical History Hepatitis A infection Anxiety Spinal stenosis, lumbar region with neurogenic claudication Lumbar radiculitis HLD (hyperlipidemia) Coronary artery arteriosclerosis Surgical History Stented coronary artery History of carpal tunnel surgery Hx of tonsillectomy Hx of appendectomy History of back surgery Hx of knee surgery (~08/2016) Hx of cardiac cath (~01/2016) Family History Father CVD (cardiovascular disease) Mother No problems noted. Social History Alcohol intake: never Patient Tobacco Use Status: Former Tobacco user Years Smoked: 5 years only quit at age 21 Review of Systems Const All systems reviewed & are unremarkable except as noted in HPI and below ENT Reports dizziness Card Denies chest pain, Denies chest pain at rest, Denies chest pain with activity, Denies rapid heart rate, Denies pedal edema, Denies edema, Denies leg edema, Denies lightheadedness, Denies palpitations, Denies dyspnea, Denies dyspnea on exertion and Denies orthopnea Resp Denies cough, Denies dyspnea and Denies dyspnea on exertion GI Denies hematochezia and Denies change in stool character Musc Denies abnormal gait, Denies limited range of motion, Denies muscle cramps, Denies muscle weakness, Denies numbness, Denies radiating pain into limb, Denies stiffness and Denies tingling Neuro Denies abnormal gait, Reports dizziness, Denies numbness and Denies tingling Endo Denies palpitations Physical Exam Vital Signs: Last Vital Signs Pulse 61 03/16/24 13:54 BP 114/52 L 03/16/24 13:54 BMI result Body Mass Index 30.6 Const General: cooperative, healthy appearing, comfortable and no acute distress Orientation/consciousness: patient oriented x3 Neck Neck: Yes normal visual inspection and Yes no JVD Resp Effort & Inspection: normal respiratory effort Auscultation: clear to auscultation bilaterally, no crackles, no rales, no rhonchi and no wheezes Cardio Jugular venous distension: no JVD Rate: regular rate Rhythm: regular rhythm Heart sounds: S1 normal heart sound present, S2 normal heart sound present, no murmurs and no rubs Neuro General: patient oriented x3 Extrem General: Yes normal to inspection and No no pedal edema Psych Appearance: grossly normal Mental Status: mental status grossly normal Speech and movement: Normal speech and movement present Assessment & Plan Assessment & Plan (1) Low BP: Code(s): I95.9 - Hypotension, unspecified Category: Medical Plan: He did outside work on 03/11/2024. The next 2 days he was noticing some lightheadedness in an upright position. No presyncope, syncope, falls. He saw his PCP on 03/14/2024 and his blood pressure was noted to be 102 systolic. Today he states he is feeling back to normal. Blood pressure initially checked by medical research assistant 114/52. Blood pressure recheck done by me clearly audible at 132/54. Since he no longer has symptoms of lightheadedness will continue on current medications including amlodipine 10 mg daily. Informed him that if he does have recurrent lightheadedness he can try reduction in amlodipine down to half a tablet which would be 5 mg daily. Instructed him to maintain good hydration especially when working outside. He has a follow-up scheduled with Dr. Ma in April and he would like to keep that appointment. Instructed to call this office if he has ongoing concerns about symptoms and blood pressure in the meantime. (2) SOB (shortness of breath) on exertion: Code(s): R06.02 - Shortness of breath Category: Medical Plan: Report of shortness of breath with activity on last visit. (3) Coronary artery arteriosclerosis: Comment: follows with Dr. Ma Code(s): I25.10 - Atherosclerotic heart disease of [place] coronary artery without angina pectoris Category: Medical Plan: History of CAD with RCA stent. His prior angina was chest tightness with activity. A nuclear stress test done 03/23/2023 for symptom of sob showed exercise 7.5 minutes with moderate shortness of breath, no EKG changes, achieving 85% mph are, nuclear imaging showing distal lateral ischemia, EF 70%. His echocardiogram done 03/11/2023 showed EF 60-65%, no valve abnormalities. On follow-up his symptoms had improved. He was put on Ranexa. He was continued on amlodipine. Signs and symptoms of angina reviewed. If he does have recurrent symptoms of chest tightness or concerning shortness of breath then cardiac catheterization can be considered. He will remain on aspirin indefinitely. Atorvastatin 40 mg daily with ideal LDL goal less than 70. Labs done 03/07/2024 showed LDL 58. No med changes made today. (4) Stented coronary artery: Comment: proximal RCA Code(s): Z95.5 - Presence of coronary angioplasty implant and graft Category: Surgical Plan: As above (5) HLD (hyperlipidemia): Comment: ideal LDL goal less than 70 and patient with known CAD. Code(s): E78.5 - Hyperlipidemia, unspecified Category: Medical Qualifiers: Hyperlipidemia type: unspecified Qualified Code(s): E78.5 - Hyperlipidemia, unspecified Plan: [place] LDL goal less than 70. Continue atorvastatin 40 mg daily Plan Time spent on chart review, documentation, interview and assessment Coding Level of Care Code Est Pt Level 3 (64895) Diagnoses Low BP I95.9 SOB (shortness of breath) on exertion R06.02 Coronary artery arteriosclerosis I25.10 Stented coronary artery Z95.5 Hyperlipidemia, unspecified hyperlipidemia type E78.5 Hyperlipidemia type: unspecified Time Spent (min) 24
== END 2024-03-16 14:29 | disposition home or self-care (01) ==
PROVIDERS: PCP Internal Medicine; Visit Provider Nurse Practitioner Family
DX: I95.9 Hypotension, unspecified (principal); R06.02 Shortness of breath; I25.10 Atherosclerotic heart disease of native coronary artery without angina pectoris; Z95.5 Presence of coronary angioplasty implant and graft; E78.5 Hyperlipidemia, unspecified
CPT/HCPCS: 99213

== ENCOUNTER → 2024-03-16 13:40 | Outpatient (BNVA) | payer MEDICARE, SELFPAY | PROVIDERS: PCP Internal Medicine; Visit Provider Nurse Practitioner Family | DX: I95.9 Hypotension, unspecified (principal); R06.02 Shortness of breath; I25.10 Atherosclerotic heart disease of native coronary artery without angina pectoris; I10 Essential (primary) hypertension; E78.5 Hyperlipidemia, unspecified; Z95.5 Presence of coronary angioplasty implant and graft | CPT/HCPCS: 99212 ==

== ENCOUNTER 2024-09-12 10:49 | Outpatient (REF) | payer MEDICARE, SELFPAY ==
[2024-09-12 10:59] LABS: MANUAL DIFF FLAG NO
[2024-09-12 11:20] LABS: Appearance Urine Clear; Color Urine Yellow; Glucose Urine UA Negative (Negative); Leukocyte Esterase Urine Negative (Negative); Nitrite Urine Negative (Negative); Specific Gravity - Urine 1.015 (1.005-1.025); Urine Blood Negative (Negative); Urine Ketones Negative (Negative); Urine Protein Negative (Neg-Trace)
[2024-09-12 11:21] LABS: Basophils Percent Auto 0.5 % (0-2); Eosinophils Absolute Auto 0.2 X10*3/uL (0.0-0.4); Eosinophils Percent Auto 2.7 % (0-4); Hematocrit 43.5 % (42.0-52.0); Hemoglobin 15.3 g/dl (14.0-18.0); Imm Gran Abs Auto 0.02 X10*3/uL (0.00-0.03); Imm Gran Pct Auto 0.3 % (0.0-0.4); Lymphocytes Absolute Auto 2.1 X10*3/uL (1.2-4.9); Lymphocytes Percent Auto 31.4 % (20-40); Mean Corpuscular HGB Conc 35.2 g/dl (31.0-36.0); Mean Corpuscular Hemoglobin 32.7 pg (27.0-33.0); Mean Corpuscular Volume 92.9 fL (80.0-98.0); Mean Platelet Volume 9.9 fL (9.4-12.4); Monocytes Absolute Auto 0.6 X10*3/uL (0.1-1.2); Monocytes Percent Auto 8.7 % (2-11); Neutrophils Absolute Auto 3.8 x10*3/uL (2.0-8.3); Neutrophils Percent Auto 56.4 % (45-73); Platelet Count 227 X10*3/uL (160-400); Red Blood Count 4.68 X10*6/uL (4.60-5.80); White Blood Count 6.7 X10*3/uL (4.8-10.8)
[2024-09-12 11:26] LABS: Bacteria Urine None Seen (None Seen); Hyaline Casts Urine 0-2 /LPF (0-2); RBC Urine 0-2 /HPF (0-2); Squamous Epithelial Cell Urine 0-2 /HPF (0-2); WBC Urine 0-5 /HPF (0-5)
--- OUTSIDE RECORDS SUMMARY | 2024-09-12 12:04 | XMS_ITS ---
Author Organization [facility] Address [address] [place] [phone] Care Team Providers Care Human Resources Talent Manager Name Role Phone Feli ROBERTSON, Tj Primary Care Provider Efrain Gomez Jr Unavailable ALLERGIES No Known Allergies REASON FOR VISIT Patient presents today for a colon screening MEDICATIONS Medication SIG (Take, Route, Frequency, Duration) Notes Start Date End Date Status MiraLax (colon prep) 17 GM/SCOOP mixed with Gatorade or Crystal Light Orally begin at 5:00 p.m. the day before the procedure for 1 day 01/10/2024 Active OsmoPrep 1.102-0.398 GM 32 tablets Orall y over two days as directed for 2 day(s) 01/01/2012 Not-Taking Atorvastatin Calcium 40 MG TAKE 1 TABLET BY MOUTH DAILY Oral for 90 Active amLODIPine Besylate 10 MG TAKE 1 TABLET BY MOUTH DAILY Oral for 90 Active Ranolazine ER 500 MG TAKE 1 TABLET BY [facility] EVERY 12 HOURS Oral for 90 Active Zoloft 100mg Active Suprep Bowel Prep 1 as directed Orally 1 for 1 dose 01/18/2015 Active Omeprazole 20mg Acti ve OsmoPrep 1.102-0.398 GM as directed Oral ly as directed for 1 dose 01/18/2015 Active Nitroglycerin 0.4 MG as directed Sublingual Active Aspir-Low 81 MG 1 tablet Orally Once a day for 30 day(s) Active IMMUNIZATIONS Vaccine Route Administration Date Status Comme nts Influenza Unknown 01/10/2024 Refused PROBLEMS Problem Type ICD Code Onset Dates Problem Status W/U Status Risk SNOMED Code Notes Problem Rectal bleeding (K62.5) Active confirmed 90569841 Problem Gas pain (R14.1) Active confirmed 95521238 Problem Colon cancer screening (Z12.11) Active confirmed 994757669 VITAL SIGNS BMI 30.53 kg/m2 01/10/2024 Blood pressure systolic 000 mm Hg 01/10/20 24 Blood pressure diastolic 00 mm Hg 024 Height 64.25 in 01/10/2024 Temperature 98.6 degrees Fahrenheit 01/10/20 24 Weight 179 lb 4 oz lbs 01/10/2024 Encounters Encounter Location Date Provider Diagnosis [facility] [address] [place] [address] 01/10/2024 Efrain Craig Jr Rectal bleeding K62.5 ; Gas pain R14.1 and Colon cancer screening Z12.11 ASSESSMENTS Encounter Date Diagnosis Assessment Notes Treatment Notes Treatment Clinical Notes 01/10/2024 Rectal bleeding (ICD-10 - K62.5) 01/10/2024 Gas pain (ICD-10 - R14.1) 01/10/2024 Colon cancer screening (ICD-10 - Z12.11) PLAN OF TREATMENT Medication Medication Name Sig Start Date Stop Date Notes MiraLax (colon prep) 17 GM/SCOOP mixed with Gatorade or Crystal Light Orally begin at 5:00 p.m. the day before the procedure for 1 day 01/10/2024 Future Test Test Name Order Date COLONOSCOPY 01/10/2024 Next Appt Details Follow Up: prn, Reason: Progress Notes * Examination Category Sub-Category Detail Notes General Examination GENERAL APPEARANCE: in no ac manzanita distress HEAD: normocephalic EYES: sclera non-icteric NECK/THYROID: no lymphadenopathy HEART: S1, S2 normal, no mu rmurs CHEST: normal shape and exp ansion LUNGS: clear to auscultatio n bilaterally ABDOMEN: soft, nontender, non distended, bowel sounds present, no organomegaly SKIN: anicteric EXTREMITIES: no clubbing, cyanosi s, or edema PSYCH: cognitive function i ntact ORAL CAVITY: mucosa moist
--- OUTSIDE RECORDS SUMMARY | 2024-09-12 12:04 | XMS_ITS ---
Author Organization Tj Edmond MD Address [address] [place] [phone] Care Team Providers Care Biomedical Engineering Professor Name Role Phone Tj Edmond Primary Care Provider Results Component Value Reference Range Notes Complete Blood Count Auto Di ff (Not yet reviewed by provider) Interpretation: Performing Lab:[facility], [address] [place] [id number] Notes/Report: White Blood Count 6.7 4.8-10.8 X10*3/uL Red Blood Count 4.68 4.60-5.80 X10*6/uL Hemoglobin 15.3 14.0-18.0 g/dl Hematocrit 43.5 42.0-52.0 % Mean Corpuscular Volume 92.9 80.0-98.0 fL Mean Corpuscular Hemoglobin 32.7 27.0-33.0 pg Mean Corpuscular HGB Conc 35.2 31.0-36.0 g/dl Red Cell Distribution Width 13.0 11.0-16.0 % Platelet Count 227 160-400 X10*3/uL Mean Platelet Volume 9.9 9.4-12.4 fL Neutrophils Percent Auto 56.4 45-73 % Imm Gran Pct Auto 0.3 0.0-0.4 % Lymphocytes Percent Auto 31.4 20-40 % Monocytes Percent Auto 8.7 2-11 % Eosinophils Percent Auto 2.7 0-4 % Basophils Percent Auto 0.5 0-2 % NRBC Pct Auto 0.0 0.0-0.2 /100WBC Neutrophils Absolute Auto 3.8 2.0-8.3 x10*3/u L Imm Gran Abs Auto 0.02 0.00-0.03 X10*3/uL Lymphocytes Absolute Auto 2.1 1.2-4.9 X10*3/u L Monocytes Absolute Auto 0.6 0.1-1.2 X10*3/uL Eosinophils Absolute Auto 0.2 0.0-0.4 X10*3/u L Basophils Absolute Auto 0.0 0.0-0.2 X10*3/uL NRBC Abs Auto 0.000 0.0-0.012 X10*3/uL UA ClnCatch+Micro w/rflx Cul t (Not yet reviewed by provider) Interpretation: Performing Lab:[facility], [address] [place] [phone] Notes/Report: [id number] Urine, Clean Catch Color Urine Yellow Appearance Urine Clear PH 7.0 5.0-9.0 Glucose Urine UA Negative Negative mg/dL Urine Blood Negative Negative Specific [place] - Urine 1.015 1.005-1.025 Urine Protein Negative Neg-Trace mg/dL Urine Ketones Negative Negative mg/dL Nitrite Urine Negative Negative Leukocyte Esterase Urine Negative Negative RBC Urine 0-2 0-2 /HPF WBC Urine 0-5 0-5 /HPF Squamous Epithelial Cell Urine 0-2 0-2 /HPF Bacteria Urine None Seen None Seen Hyaline Casts Urine 0-2 0-2 /LPF REASON FOR VISIT yearly fasting labs Encounters Encounter Location Date Provider Diagnosis Tj Edmond MD [address] [place], [place] [phone] 09/12/2024 Tj Bombardier Blood tests for rout ine general physical examination Z00.00 ; Elevated LFTs R79.89 and Hypercholesterolemia E78.00 Assessments Encounter Date Diagnosis (ICD Code) Assessment Notes Treatment Notes Treatment Clinical Notes Section Notes 09/12/2024 Blood tests for rout ine general physical examination (ICD-10 - Z00.00) 09/12/2024 Elevated LFTs (ICD-1 0 - R79.89) 09/12/2024 Hypercholesterolemia (ICD-10 - E78.00) Plan Of Treatment Pending Test Test Name Order Date Complete Blood Count Auto Diff Comprehensive [place]. Panel Fast Liver Panel 09/12/2024 Lipid Panel 09/12/2024 PSA,Total (Free>4and<10) 09/12/2024 UA ClnCatch+Micro w/rflx Cult 09/12/2024 Next Appt Details Provider Name:Tj Baltazar ier, 09/15/2024 09:30:00 AM, [address] [place] [address], [address], [place], [place], [phone], Progress Notes * Deangelo MARTINEZDOB:1950 (74 yo M)Acc No.[id number]:09/12/2024 Progress Note Patient:?Deangelo MARTINEZ Provider:?Tj Edmond MD :1950???Age:74 Y???Sex:Male Kal e:09/12/2024 Address:[address] [place] [address] Subjective: * Chief Complaints: * ???1. Yearly fasting labs. * Medical History:? Objective: * Vitals:? Assessment: * Assessment: 1.?Blood tests for routine g eneral physical examination - Z00.00 (Primary)???2.?Elevated LFTs - R79.89???3.?Hypercholesterolemia - E78.00??? Plan: * Treatment: 2.?Elevated LFTs?LAB: Complete Blood Count Auto Diff (Collection Date & Time - 09/12/2024 07:45 AM) ?LAB: [facility] [place]. Panel Fast ?LAB: Liver Panel ?LAB: Lipid Panel ?LAB: PSA,Total (Free>4and<10) ?LAB: UA ClnCatch+Micro w/rflx Cult (Collection Date & Time - 09/12/2024 07:45 AM) 3.?Hypercholesterolemia?LAB: Complete Blood Count Auto Diff (Collection Date & Time - 09/12/2024 07:45 AM) ?LAB: [facility] [place]. Panel Fast ?LAB: Liver Panel ?LAB: Lipid Panel ?LAB: PSA,Total (Free>4and<10) ?LAB: UA ClnCatch+Micro w/rflx Cult (Collection Date & Time - 09/12/2024 07:45 AM) * Procedure Codes:?78492 VENIP UNCT, ROUTINE* * * The named appointment provid er may or may not be the originator of this progress note, and it is not deemed complete until electronically signed by the appointment provider. Sign off status: Pending * Provider:?Tj Edmond MD Date:?0 09/12/2024 Generated for Seth hidalgo/Kathy/Sengsmitting on:?09/12/2024 12:04 PM EST
--- OUTSIDE RECORDS SUMMARY | 2024-09-12 12:04 | XMS_ITS ---
Author Organization Tj Edmond MD Address [address] [place] [phone] Care Team Providers Care Tennis Professional Name Role Phone Tj Edmond Primary Care Provider REASON FOR VISIT med issue with Sertralin Medications Medication SIG (Take, Route, Fr equency, Duration) Notes Start Date End Date Status Sertraline HCl 100 MG TAKE 1 TABLET BY M OUTH EVERY DAY Orally Once a day for 90 days Active Encounters Encounter Location Date Provider Diagnosis Tj Edmond MD [address] [place] [phone] 04/24/2024 Tj Edmond Plan Of Treatment Medication Medication Name Sig Start Date Stop Date Notes Sertraline HCl 100 MG TAKE 1 TABLET BY M OUTH EVERY DAY Orally Once a day for 90 days Next Appt Details Provider Name:Tj castaneda, 09/15/2024 09:30:00 AM, [address] [place] [address], [address], [place], [place], [phone], Progress Notes * Deangelo MARTINEZDOB:1950 (73 yo M)Acc No.[id number]:04/24/2024 Patient:?Deangelo Martinez :1950???Age:73 Y???Sex:Male Address:[address] [place] [address] * Refills? Refill Sertraline HCl Tablet, 100 MG, Orally, 90 Tablet, TAKE 1 TABLET BY MOUTH EVERY DAY, Once a day, 90 days, Refills=3 * true * Date:? Generated for Seth hidalgo/Kathy/Louitting on:?09/12/2024 12:03 PM EST
--- OUTSIDE RECORDS SUMMARY | 2024-09-12 12:04 | XMS_ITS | Patient Health Record ---
Author Organization [facility] Address [address] [place] [phone] Care Team Providers Care Room Service Waiter/Waitress Name Role Phone Tj Edmond MD Primary Care Provider Efrain Gomez Jr Unavailable ALLERGIES No Known Allergies REASON FOR REFERRAL No Information MEDICATIONS Medication SIG (Take, Route, Frequency, Duration) Notes Start Date End Date Status MiraLax (colon prep) 17 GM/SCOOP mixed with Gatorade or Crystal Light Orally begin at 5:00 p.m. the day before the procedure for 1 day 01/10/2024 Active OsmoPrep 1.102-0.398 GM 32 tablets Orall y over two days as directed for 2 day(s) 01/01/2012 Not-Taking Nitroglycerin 0.4 MG as directed Sublingual Active Aspir-Low 81 MG 1 tablet Orally Once a day for 30 day(s) Active Zoloft 100mg Active Suprep Bowel Prep 1 as directed Orally 1 for 1 dose 01/18/2015 Active Omeprazole 20mg Acti ve OsmoPrep 1.102-0.398 GM as directed Oral ly as directed for 1 dose 01/18/2015 Active Atorvastatin Calcium 40 MG TAKE 1 TABLET BY MOUTH DAILY Oral for 90 Active amLODIPine Besylate 10 MG TAKE 1 TABLET BY MOUTH DAILY Oral for 90 Active Ranolazine ER 500 MG TAKE 1 TABLET BY MO UTH EVERY 12 HOURS Oral for 90 Active IMMUNIZATIONS Vaccine Route Administration Date Status Comme nts Influenza Unknown 01/10/2024 Refused SOCIAL HISTORY Sex Assigned At : Social History Observation Description Sex Assigned At Unknown PROBLEMS Problem Type ICD Code Onset Dates Problem Status W/U Status Risk SNOMED Code Notes Problem Colon cancer screening (Z12.11) Active confirmed 829464931 Problem Rectal bleeding (K62.5) Active confirmed 84197805 Problem Gas pain (R14.1) Active confirmed 23626719 VITAL SIGNS Temperature 98.6 degrees Fahrenheit 01/10/2024 Blood pressure diastolic 00 mm Hg 01/10/2024 Height 64.25 in 01/10/2024 Blood pressure systolic 000 mm Hg 01/10/2024 Weight 179 lb 4 oz lbs 01/10/2024 BMI 30.53 kg/m2 01/10/2024 Encounters Encounter Location Date Provider Diagnosis [facility] [address] [place], [place] [phone] 02/25/2024 Efrain Craig Jr Encounter for screening colonoscopy Z12.11 [facility] [address] [place] [address] 01/10/2024 Efrain Craig Jr Rectal bleeding K62.5 ; Gas pain R14.1 and Colon cancer screening Z12.11 ASSESSMENTS Encounter Date Diagnosis Assessment Notes Treatment Notes Treatment Clinical Notes 02/25/2024 Encounter for screening colonoscopy (ICD-10 - Z12.11) 01/10/2024 Rectal bleeding (ICD-10 - K62.5) 01/10/2024 Gas pain (ICD-10 - R14.1) 01/10/2024 Colon cancer screening (ICD-10 - Z12.11) PLAN OF TREATMENT Future Test Test Name Order Date UPPER GI ENDOSCOPY 01/01/2012 COLONOSCOPY 01/01/2012 COLONOSCOPY 01/18/2015 COLONOSCOPY 01/10/2024 Insurance Providers Payer Name Payer Address Payer Phone Subscriber Number Group Number Insured Name Patient Relationship to Insured Coverage Start Date Coverage End Date [facility] [address] [place] [phone] [id number] LINDY BERNAL Self - patient is the insured MEDICAL (GENERAL) HISTORY Medical History History ICD Code Hepatitis A infection Fatty liver Anxiety Colonoscopy 02/06, normal, ten-year follo wup Coronary artery disease with stent place ment Hyperlipidemia Lumbar spondylosis Surgical History Surgery Date(Month/Year) appendectomy tonsillectomy carpal tunnel surgery on both hands 2010 back surgery 2013
--- OUTSIDE RECORDS SUMMARY | 2024-09-12 12:04 | XMS_ITS ---
Author Organization [facility] Address [address] [place] [phone] Care Team Providers Care District Court Bailiff Name Role Phone Tj Edmond MD Primary Care Provider Efrain Gomez Jr REASON FOR VISIT screening Encounters Encounter Location Date Provider Diagnosis [facility] [address] [place], [place] [phone] 02/25/2024 Efrain Craig Jr Encounter for screening colonoscopy Z12.11 ASSESSMENTS Encounter Date Diagnosis Assessment Notes Treatment Notes Treatment Clinical Notes 02/25/2024 Encounter for screening colonoscopy (ICD-10 - Z12.11) PLAN OF TREATMENT No Information
--- OUTSIDE RECORDS SUMMARY | 2024-09-12 12:04 | XMS_ITS ---
Author Organization Tj Edmond MD Address [address] [place] [phone] Care Team Providers Care Pesticide Control Inspector Name Role Phone Tj Edmond Primary Care Provider [phone] Allergies No Known Allergies REASON FOR VISIT 6 month Medications Medication SIG (Take, Route, Frequency, Duration) Notes Start Date End Date Status HYDROcodone-Acetaminophen 5-325 MG 1 tablet as needed Orally every 6 hrs for 7 days 07/03/2021 Not-Taking dexAMETHasone 4 MG 1 tablet Orally Thre e times a day for 7 days 04/22/2021 Not-Takin g Nitrostat 0.4 MG as directed Sublingu al i tab sub for pain. may repeat times 3 for 7 days 01/17/2016 Not-Taking Anusol-HC 25 MG 1 suppository Rectal Twice a day for 14 day(s) 01/14/2015 Not-Taking Atorvastatin Calcium 40 MG 1 tablet Orally Once a day Active Metoprolol Succinate ER 25 MG 1 tab Orally Once a day Not- Taking Ibuprofen 800 MG 1 tablet with food o r milk as needed Orally Three times a day 05/08/2021 Not-Taking Aspirin Adult Low Strength 81 MG 1 tablet Orally Once a day 01/17/2016 Active Omeprazole 20 MG TAKE 1 CAPSULE BY MO UTH EVERY DAY for 90 Active amLODIPine Besylate 10 MG 1 tablet Orall y Once a day Active Ranexa Active Sertraline HCl 100 MG TAKE 1 TABLET BY M OUT EVERY DAY Orally Once a day for 30 days Active Problems Problem Type SNOMED Code ICD Code Onset Dates Problem Status W/U Status Risk Notes Problem [id number] Chronic coronary artery disease (I25.10) Active confirmed Vital Signs Blood pressure systolic 108 mm Hg 03/14/20 Blood pressure diastolic 52 mm Hg 024 Height 65 in 03/14/2024 Weight 180 lbs 03/14/2024 BMI 29.95 kg/m2 03/14/2024 weight is up 7 pounds since 09-10-23 Encounters Encounter Location Date Provider Diagnosis Tj Edmond MD [address] [place] [address] [place] [phone] 03/14/2024 Tj Edmond Carpal tunnel syndro me on both sides G56.03 ; History of heart artery stent Z95.5 ; Chronic coronary artery disease I25.10 and Hypercholesterolemia E78.00 Assessments Encounter Date Diagnosis (ICD Code) Assessment Notes Treatment Notes Treatment Clinical Notes Section Notes 03/14/2024 Carpal tunnel syndro me on both sides (ICD-10 - G56.03) causing his numbness in arms/ wants to wait to have surgery when on summer vacation 03/14/2024 History of heart art alyce stent (ICD-10 - Z95.5) 03/14/2024 Chronic coronary art alyce disease (ICD-10 - I25.10) doing well with no chest pains but getting a little light headed with the angina meds/ will need to contact dr england if it persists 03/14/2024 Hypercholesterolemia (ICD-10 - E78.00) stable, will continue current regiment Plan Of Treatment Medication Medication Name Sig Start Date Stop Date Notes Atorvastatin Calcium 40 MG 1 tablet Orally Once a day Treatment Notes Assessment Notes Carpal tunnel syndrome on both sides cau sing his numbness in arms/ wants to wait to have surgery when on summer vacation Chronic coronary artery disease doing we ll with no chest pains but getting a little light headed with the angina meds/ will need to contact dr england if it persists Hypercholesterolemia stable, will contin ue current regiment Next Appt Details Provider Name:Tj blackburnr, 09/15/2024 09:30:00 AM, [address] [facility], [address], [place], [place], [phone], Progress Notes * Deangelo MARTINEZDOB:1950 (73 yo M)Acc No.[id number]:03/14/2024 Progress Notes Patient:?Deangelo Martinez Provider:?Tj Edmond MD :1950???Age:73 Y???Sex:Male Kal e:03/14/2024 Address:[address] [place], [place] [phone] Subjective: * Chief Complaints: * ???6 month * HPI: ???Symptom(s):? patient is a 73 yo male here for 6 month follow up visit. woke up 2 days ago with balance issue.lasted one day. * ROS:?General/Constitutional:?Denies?Chills.?Denies?Fatigue.?Denies?Fever.?Denies?Headache.?ENT:?Patient denies?decreased sense of smell, any loss of taste, sore throat.?Denies?Sore throat.?Respiratory:?Denies?Cough.?Denies?Shortness of breath at rest.?Denies?Shortness of breath with exertion.?Cardiovascular:?Denies?Chest pain at rest.?Denies?Chest pain with exertion.?Admits?Dizziness.?Denies?Palpitations.?Admits?Shortness of breath.?Gastrointestinal:?Denies?Diarrhea.?Denies?Nausea.?Musculoskeletal:?Patient denies?muscle aches.?Peripheral Vascular:?Patient denies?red and blue toes.? * Medical History:? * Surgical History:? * Hospitalization/Major Diagno stic Procedure:? * Medications:?TakingRanexa Se rtraline HCl 100 MG Tablet TAKE 1 TABLET BY MOUTH EVERY DAY Orally Once a dayAtorvastatin Calcium 40 MG Tablet 1 tablet Orally Once a dayamLODIPine Besylate 10 MG Tablet 1 tablet Orally Once a dayAspirin Adult Low Strength 81 MG Tablet Chewable 1 tablet Orally Once a dayOmeprazole 20 MG Capsule Delayed Release TAKE 1 CAPSULE BY MOUTH EVERY DAY Taking Ranexa Taking Sertraline HCl 100 MG Tablet TAKE 1 TABLET BY MOUTH EVERY DAY Orally Once a dayTaking Atorvastatin Calcium 40 MG Tablet 1 tablet Orally Once a dayTaking amLODIPine Besylate 10 MG Tablet 1 tablet Orally Once a dayTaking Aspirin Adult Low Strength 81 MG Tablet Chewable 1 tablet Orally Once a dayTaking Omeprazole 20 MG Capsule Delayed Release TAKE 1 CAPSULE BY MOUTH EVERY DAY Not-Taking/PRNMetoprolol Succinate ER 25 MG Tablet Extended Release 24 Hour 1 tab Orally Once a dayIbuprofen 800 MG Tablet 1 tablet with food or milk as needed Orally Three times a dayHYDROcodone-Acetaminophen 5-325 MG Tablet 1 tablet as needed Orally every 6 hrsdexAMETHasone 4 MG Tablet 1 tablet Orally Three times a dayNitrostat 0.4 MG Tablet Sublingual as directed Sublingual i tab sub for pain. may repeat times 3Anusol-HC 25 MG Suppository 1 suppository Rectal Twice a dayMedication List reviewed and reconciled with the patientNot-Taking/PRN Metoprolol Succinate ER 25 MG Tablet Extended Release 24 Hour 1 tab Orally Once a dayNot-Taking/PRN Ibuprofen 800 MG Tablet 1 tablet with food or milk as needed Orally Three times a dayNot-Taking/PRN HYDROcodone-Acetaminophen 5-325 MG Tablet 1 tablet as needed Orally every 6 hrsNot-Taking/PRN dexAMETHasone 4 MG Tablet 1 tablet Orally Three times a dayNot-Taking/PRN Nitrostat 0.4 MG Tablet Sublingual as directed Sublingual i tab sub for pain. may repeat times 3Not-Taking/PRN Anusol-HC 25 MG Suppository 1 suppository Rectal Twice a dayMedication List reviewed and reconciled with the patient * Allergies:?N.K.D.A.yes[Aller gies Verified] Objective: * Vitals:?Ht: 65, Wt:180, BMI: 29.95, BP:108/52, Repeat BP:112/50 weight is up 7 pounds since 09-10-23. * ???Past Orders: ???Lab:Liver Panel (Order Da te 03/07/2024) (Collection Date - 03/07/2024) ? Value Reference Range ?Bilirubin Total 1.1 H 0.0- 1.0 - mg/dL ?Bilirubin Direct 0.3 0.0 -0.5 - mg/dL ?Aspartate Amino Transferase 23 5-37 - U/L ?Alanine Aminotransferase 16 0-40 - U/L ?Total Protein 7.1 6.5-8. 0 - g/dL ?Albumin Level 4.3 3.5-5. 0 - g/dL ?Alkaline Phosphatase 130 H 39-117 - U/L ???Lab:Lipid Panel with Refl ex (Order Date - 03/07/2024) (Collection Date - 03/07/2024) ? Value Reference Range ?Triglycerides 124 <150 - mg/dL ?Cholesterol 118 <200 - m g/dL ?LDL Cholesterol Calculated 58 <100 - mg/dL ?HDL Cholesterol 36 L >40 - mg/dL * Examination: ???General Examination: ?GENERAL APPEARANCE:? alert, well hydrated, in no distress , male.?HEAD:? normocephalic.?SKIN:? good turgor.?HEART:? regular rate and rhythm, no murmurs, rubs, gallops.?LUNGS:? no wheezes, rales, rhonchi, good air movement, clear to auscultation bilaterally.? Assessment: * Assessment: 1.?Carpal tunnel syndrome on both sides - G56.03 (Primary)?2.?History of heart artery stent - Z95.5?3.?Chronic coronary artery disease - I25.10?4.?Hypercholesterolemia - E78.00? Plan: * Treatment: 2.?Chronic coronary artery d isease? Notes: doing well with no chest pains but getting a little light headed with the angina meds/ will need to contact dr england if it persists.?? 3.?Hypercholesterolemia? Continue Atorvastatin Calcium Tablet, 40 MG, 1 tablet, Orally, Once a day.?? Notes: stable, will continue current regiment.?? * Procedure Codes:? * * Sign off status: Completed true * Provider:?Tj Edmond MD Date:?0 03/14/2024 Generated for Seth hidalgo/Kathy/Louitting on:?09/12/2024 12:04 PM EST History and Physical Notes * HPI (History of Present Illness) Category Sub-Category Detail Notes Category Not es Symptom(s) patient is a 73 yo male here for 6 month follow up visit. woke up 2 days ago with balance issue.lasted one day Examination Category Sub-Category Detail Notes Category Not es General Examination GENERAL APPEARANCE: alert, w ell hydrated, in no distress , male HEAD: normocephalic HEART: regular rate and rhy thm, no murmurs, rubs, gallops LUNGS: no wheezes, rales, r honchi, good air movement, clear to auscultation bilaterally SKIN: good turgor
[2024-09-12 12:30] LABS: PSA,Total (Free>4and<10) 3.08 ng/mL (0.00-4.00)
[2024-09-12 12:37] LABS: Alanine Aminotransferase 21 U/L (0-40); Albumin Level 4.3 g/dL (3.5-5.0); Alkaline Phosphatase 106 U/L (39-117); Anion Gap 12 (12-20); Aspartate Amino Transferase 29 U/L (5-37); Bilirubin Direct 0.3 mg/dL (0.0-0.5); Bilirubin Total 1.2 mg/dL (0.0-1.0); Blood Urea Nitrogen 11 mg/dL (9-16); Calcium 9.4 mg/dL (8.4-10.2); Carbon Dioxide 26 mmol/L (22-29); Chloride 109 mmol/L (96-108); Cholesterol 112 mg/dL (<200); Estimated Glomerular Filt Rate > 60; Glucose Fasting 93 mg/dL (60-99); HDL Cholesterol 34 mg/dL (>40); LDL Cholesterol Calculated 43 mg/dL (<100); Sodium 143 mmol/L (135-145); Total Protein 7.3 g/dL (6.5-8.0); Triglycerides 178 mg/dL (<150)
== END 2024-09-12 10:50 | disposition home or self-care (01) ==
LOC: HO.LNP 10:49
PROVIDERS: Visit Provider Internal Medicine
DX: Z00.00 Encounter for general adult medical examination without abnormal findings (principal); Z12.5 Encounter for screening for malignant neoplasm of prostate; R79.89 Other specified abnormal findings of blood chemistry; E78.00 Pure hypercholesterolemia, unspecified
CPT/HCPCS: 80053; 80061; 80076; 81001; 82248; 84153; 85025

== ENCOUNTER 2024-09-13 08:55 | Outpatient (AMB) | payer MEDICARE, SELFPAY ==
--- NOTE | 2024-09-13 08:56 | MHC.OFFVIS ---
Vital Signs 09/13/24 08:59 Height 5 ft 4 in Weight 187 lb 6.287 oz BMI 32.2 BP 120/74 Blood Pressure Location Lt brachial Position Sitting Pulse 60 Intake Visit Reasons: 6mnth f/up Intake Note: 6 month follow-up feeling good Distribution Technician Required: No Allergies milk [MILK] Adverse Reaction (Mild, Verified 03/16/24 13:58) CONGESTION Medication List - Last Reconciled 09/13/24 by Misha Ma MD amlodipine 10 mg PO DAILY aspirin (Adult Low Dose Aspirin) 81 mg PO DAILY atorvastatin 40 mg PO DAILY 90 days nitroglycerin 0.4 mg sublingual Q5M PRN omeprazole 20 mg PO DAILY ranolazine ER 500 mg PO Q12H sertraline 100 mg PO DAILY HPI Comments Details: Deangelo comes for follow-up. He has been doing extremely well from cardiac perspective. He said he has not been exercising much but with his usual day-to-day activity denies any symptoms of angina. He denies any prolonged palpitation irregular heartbeat. Denies any shortness of breath, orthopnea, PND, leg edema. No lightheadedness. His blood pressures remained stable. He is taking all his medications. Last LDL of 43 mg/dL. [facility] Medical History Hepatitis A infection Anxiety Spinal stenosis, lumbar region with neurogenic claudication Lumbar radiculitis HLD (hyperlipidemia) Coronary artery arteriosclerosis Surgical History Stented coronary artery History of carpal tunnel surgery Hx of tonsillectomy Hx of appendectomy History of back surgery Hx of knee surgery (~08/2016) Hx of cardiac cath (~01/2016) Family History Father CVD (cardiovascular disease) Mother No problems noted. Social History Alcohol intake: never Patient Tobacco Use Status: Former Tobacco user Years Smoked: 5 years only quit at age 21 Review of Systems Const Denies chills, Denies fatigue, Denies fever(s), Denies frequent falls, Denies weakness, Denies weight gain and Denies weight loss ENT Denies dizziness Card Denies chest pain, Denies leg edema, Denies lightheadedness, Denies palpitations, Denies dyspnea, Denies dyspnea on exertion, Denies orthopnea and Denies other (loss of consciousness) Resp Denies cough, Denies dyspnea and Denies dyspnea on exertion GI Denies hematochezia and Denies change in stool character Musc Denies abnormal gait, Denies muscle weakness, Denies numbness, Denies radiating pain into limb and Denies tingling Neuro Denies abnormal gait, Denies dizziness, Denies frequent falls, Denies numbness, Denies tingling and Denies weakness Endo Denies fatigue and Denies palpitations Physical Exam Vital Signs: Last Vital Signs Pulse 60 09/13/24 08:59 BP 120/74 09/13/24 08:59 BMI result Body Mass Index 32.2 Const General: cooperative, healthy appearing, comfortable and no acute distress Orientation/consciousness: patient oriented x3 Neck Neck: Yes normal visual inspection and Yes no JVD Resp Effort & Inspection: normal respiratory effort Auscultation: clear to auscultation bilaterally, no crackles, no rales, no rhonchi and no wheezes Cardio Jugular venous distension: no JVD Rate: regular rate Rhythm: regular rhythm Heart sounds: S1 normal heart sound present, S2 normal heart sound present, no murmurs and no rubs Neuro General: patient oriented x3 Extrem General: Yes normal to inspection and No no pedal edema Psych Appearance: grossly normal Mental Status: mental status grossly normal Speech and movement: Normal speech and movement present Office Procedures EKG Details: EKG shows normal sinus rhythm with right bundle-branch block and left anterior fascicular block with LVH, unchanged from before [id number], Complete Assessment & Plan Assessment & Plan (1) Coronary artery arteriosclerosis: Comment: follows with Dr. Ma Code(s): I25.10 - Atherosclerotic heart disease of [place] coronary artery without angina pectoris Category: Medical Plan: Coronary artery disease, stable with no current angina on dual antianginal therapy with amlodipine and Ranexa. He is tolerating this therapy well. Blood pressure is currently well optimized advised to monitor blood pressure intermittently at home maintain a log. Goal blood pressure less than 130/84. LDL is extremely well optimized, continue current therapy with high-intensity statin therapy. Continue lifelong low-dose aspirin therapy. Advised to call me with any new symptoms that may require further workup evaluation. (2) Sinus bradycardia: Code(s): R00.1 - Bradycardia, unspecified Category: Medical Plan: Sinus bradycardia without any new symptoms. No indication for pacing therapy. This usually suggestive of sinoatrial esteban dysfunction. Advised to call me with any new symptoms. Will follow up in the clinic in 6 months time, sooner p.r.n.. Thank you for allowing me to partake in his care Coding Level of Care Code Est Pt Level 4 (14016) Complex EM visit Add On G2211 Diagnoses Coronary artery arteriosclerosis I25.10 Sinus bradycardia R00.1 CPT Codes EKG - CPT: 77910-[id number], Complete ([id number])
[2024-09-13 08:59] VITALS: BP 120/74; PULSE 60; BMI 32.2
--- OUTSIDE RECORDS SUMMARY | 2024-09-13 09:01 | XMS_ITS | Patient Health Record ---
Author Organization [facility] Address [address] [place] [phone] Care Team Providers Care Radiological Equipment Specialist Name Role Phone Tj Edmond MD Primary [...] Problem Colon cancer screening (Z12.11) Active confirmed 913898302 Problem Rectal bleeding (K62.5) Active confirmed 76344321 Problem Gas pain (R14.1) Active confirmed [id number] VITAL SIGNS Temperature 98.6 degrees Fahrenheit 01/10/2024 Blood pressure diastolic 00 mm Hg 01/10/2024 Height 64.25 in 01/10/2024 Blood pressure systolic 000 mm Hg 01/10/2024 Weight 179 lb 4 oz lbs 01/10/2024 BMI 30.53 kg/m2 01/10/2024 Encounters Encounter Location Date Provider Diagnosis [facility] [address] [place], [place] [phone] 02/25/2024 Efrain Craig Jr Encounter for screening colonoscopy Z12.11 [facility] [address] [place] [address] 01/10/2024 Efrain Craig Jr Rectal bleeding K62.5 [...] Insured Coverage Start Date Coverage End Date [facility] [address] [place] [phone] [id number] LINDY BERNAL Self - patient is the insured MEDICAL (GENERAL) HISTORY Medical History History ICD Code Hepatitis A infection Fatty liver Anxiety Colonoscopy 02/06, normal, ten-year follo wup Coronary artery disease with stent place ment Hyperlipidemia Lumbar spondylosis Surgical History Surgery Date(Month/Year) appendectomy tonsillectomy carpal tunnel surgery on both hands 2010 back surgery 2013
--- OUTSIDE RECORDS SUMMARY | 2024-09-13 09:01 | XMS_ITS ---
Author Organization Tj Edmond MD Address [address] [place] [phone] Care Team Providers Care Planting Machine Operator Name Role Phone Tj Edmond Primary Care Provider [phone] REASON FOR VISIT med issue with Sertralin Medications Medication SIG (Take, Route, Fr equency, Duration) Notes Start Date End Date Status Sertraline HCl 100 MG TAKE 1 TABLET BY M OUTH EVERY DAY Orally Once a day for 90 days Active Encounters Encounter Location Date Provider Diagnosis Tj Edmond MD [address] [place] [phone] 04/24/2024 Tj Edmond Plan Of Treatment Medication Medication Name Sig Start Date Stop Date Notes Sertraline HCl 100 MG TAKE 1 TABLET BY M OUTH EVERY DAY Orally Once a day for 90 days Next Appt Details Provider Name:Tj castaneda, 09/15/2024 09:30:00 AM, [address] [place] [address], [address], [place], [place], [phone], Progress Notes * Deangelo MARTINEZDOB:1950 (73 yo M)Acc No.[id number]:04/24/2024 Patient:?Deangelo Martinez :1950???Age:73 Y???Sex:Male Address:[address] [place] [address] * Refills? Refill Sertraline HCl Tablet, 100 MG, Orally, 90 Tablet, TAKE 1 TABLET BY MOUTH EVERY DAY, Once a day, 90 days, Refills=3 * true * Date:? Generated for Seth hidalgo/Kathy/Louitting on:?09/13/2024 09:01 AM EST
--- OUTSIDE RECORDS SUMMARY | 2024-09-13 09:01 | XMS_ITS ---
Author Organization [facility] Address [address] [place] [phone] Care Team Providers Care Commodities Manager Name Role Phone Tj Edmond MD Primary Care Provider Efrain Gomez Jr REASON FOR VISIT screening Encounters Encounter Location Date Provider Diagnosis [facility] [address] [place], [place] [phone] 02/25/2024 Efrain Craig Jr Encounter for screening colonoscopy Z12.11 ASSESSMENTS Encounter Date Diagnosis Assessment Notes Treatment Notes Treatment Clinical Notes 02/25/2024 Encounter for screening colonoscopy (ICD-10 - Z12.11) PLAN OF TREATMENT No Information
--- OUTSIDE RECORDS SUMMARY | 2024-09-13 09:02 | XMS_ITS ---
Author Organization Tj Edmond MD Address [address] [place] [phone] Care Team Providers Care Machine Engineer Name Role Phone Tj Edmond Primary Care Provider Allergies No Known Allergies REASON FOR VISIT [...] Problem Status W/U Status Risk Notes Problem [id number] Chronic coronary artery disease (I25.10) Active confirmed Vital Signs Blood pressure systolic 108 mm Hg 03/14/20 Blood pressure diastolic 52 mm Hg 024 Height 65 in 03/14/2024 Weight 180 lbs 03/14/2024 BMI 29.95 kg/m2 03/14/2024 weight is up 7 pounds since 09-10-23 Encounters Encounter Location Date Provider Diagnosis Tj Edmond MD [address] [place] [address] [place] [phone] 03/14/2024 Tj Edmond Carpal tunnel syndro me [...] 10 [facility], [address], [place], [place], [phone], Progress Notes * Deangelo MARTINEZDOB:1950 (73 yo M)Acc No.[id number]:03/14/2024 Progress Notes Patient:?Deangelo Martinez Provider:?Tj Edmond MD :1950???Age:73 Y???Sex:Male Kal e:03/14/2024 Address:[address] [place], [place] [phone] Subjective: * Chief Complaints: * ???6 month [...] MD Date:?0 03/14/2024 Generated for Seth hidalgo/Kathy/Louitting on:?09/13/2024 09:02 AM EST History and Physical Notes * HPI [...]
--- OUTSIDE RECORDS SUMMARY | 2024-09-13 09:02 | XMS_ITS ---
Author Organization [facility] Address [address] [place] [phone] Care Team Providers Care Natural Gas Plant Supervisor Name Role Phone Feli ROBERTSON, Tj Primary [...] ER 500 MG TAKE 1 TABLET BY [facility] EVERY 12 HOURS Oral for 90 [...] Notes Problem Rectal bleeding (K62.5) Active confirmed 56055119 Problem Gas pain (R14.1) Active confirmed 39665853 Problem Colon cancer screening (Z12.11) Active confirmed [id number] VITAL SIGNS BMI 30.53 kg/m2 01/10/2024 Blood pressure systolic 000 mm Hg 01/10/20 24 Blood pressure diastolic 00 mm Hg 024 Height 64.25 in 01/10/2024 Temperature 98.6 degrees Fahrenheit 01/10/20 24 Weight 179 lb 4 oz lbs 01/10/2024 Encounters Encounter Location Date Provider Diagnosis [facility] [address] [place] [address] 01/10/2024 Efrain Craig Jr Rectal bleeding K62.5 [...] General Examination GENERAL APPEARANCE: in no ac tetlin distress HEAD: normocephalic EYES: sclera non-icteric NECK/THYROID: no lymphadenopathy HEART: S1, S2 normal, no mu rmurs CHEST: normal shape and exp ansion LUNGS: clear to auscultatio n bilaterally ABDOMEN: soft, nontender, non distended, bowel sounds present, no organomegaly SKIN: anicteric EXTREMITIES: no clubbing, cyanosi s, or edema PSYCH: cognitive function i ntact ORAL CAVITY: mucosa moist
--- OUTSIDE RECORDS SUMMARY | 2024-09-13 09:02 | XMS_ITS ---
Author Organization Tj Edmond MD Address [address] [place] [phone] Care Team Providers Care Logistics Coordinator Name Role Phone Tj Edmond Primary Care Provider Results Component Value Reference Range Notes Complete Blood Count Auto Di ff Reviewed date:09/12/2024 04:59:49 PM Interpretation: Performing Lab:[facility], [address] [place] [phone] Notes/Report: White Blood Count 6.7 4.8-10.8 X10*3/uL [...] X10*3/uL NRBC Abs Auto 0.000 0.0-0.012 X10*3/uL Comprehensive [place]. Panel Fa st Reviewed date:09/12/2024 04:57:32 PM Interpretation: Performing Lab:[facility], [address] [place] [phone] Notes/Report: Sodium 143 135-145 mmol/L Potassium 4.0 3.3-5.1 mmol/L Chloride 109 96-108 mmol/L Carbon Dioxide 26 22-29 mmol/L Anion Gap 12 12-20 Blood Urea Nitrogen 11 9-16 mg/dL Creatinine 0.80 0.5-1.4 mg/dL Estimated Glomerular Filt Rate > 60 Chronic Kidney Disease: Estimated GFR < 60 mL/min/1.73m2 Severe Kidney Disease: Estimated GFR < 15 mL/min/1.73m2 Glucose Fasting 93 60-99 mg/dL Calcium 9.4 8.4-10.2 mg/dL Bilirubin Total 1.2 0.0-1.0 mg/dL Aspartate Amino Transferase 29 5-37 U/L Alanine Aminotransferase 21 0-40 U/L Total Protein 7.3 6.5-8.0 g/dL Albumin Level 4.3 3.5-5.0 g/dL Alkaline Phosphatase 106 39-117 U/L Liver Panel Reviewed date:09/12/2024 12:44:28 PM Interpretation: Performing Lab:[facility], [address] [place] [phone] Notes/Report: Bilirubin Direct 0.3 0.0-0.5 mg/dL Lipid Panel Reviewed date:09/12/2024 12:44:36 PM Interpretation: Performing Lab:[facility], [address] [place] [phone] Notes/Report: Triglycerides 178 <150 mg/dL Desirable Triglyceride: less than 150 mg/dL Borderline High Triglyceride 150-199 mg/dL High Triglyceride: 200-499 mg/dL Very High Triglyceride: greater than or equal to 5OO mg/dL Cholesterol 112 <200 mg/dL Desirable Cholesterol: less than 200 mg/dL Borderline High Cholesterol: 200-239 mg/dL High Cholesterol: greater than 239 mg/dL LDL Cholesterol Calculated 43 <100 mg/dL Desirable LDL: less than 100 mg/dL Near Optimal/Above Optimal LDL: 110-129 mg/dL Borderline High LDL: 130-159 mg/dL High LDL: 160-189 mg/dL Very High LDL: greater than or equal to 190 mg/dL HDL Cholesterol 34 >40 mg/dL Desirable HDL: greater than 40 mg/dL Note: This HDL assay may give artificially low results in patients with liver disease. PSA,Total (Free>4and<10) Reviewed date:09/12/2024 12:36:13 PM Interpretation: Performing Lab:[facility], [address] [place] [phone] Notes/Report: PSA,Total (Free>4and<10) 3.08 0.00-4.00 ng/mL A Free PSA was not performed: The percentage of Free PSA can be used to enhance the differentiation of prostate cancer from benign prostatic disease in subjects whose PSA levels are between 4.0 and 10.0 ng/mL. For subjects whose PSA levels are below 4.0 or above 10.0 ng/mL, the risk of prostate cancer is determined on the basis of the PSA alone. Therefore the % Free PSA is recommended only for those subjects whose PSA levels are between 4.0 and 10.0 ng/mL. PSA methodology: Alvarez Alinity i Chemiluminescent Microparticle Immunoassay (CMIA) UA ClnCatch+Micro w/rflx Cul t Reviewed date:09/12/2024 12:09:12 PM Interpretation: Performing Lab:[facility], [address] [place] [phone] Notes/Report: [id number] Urine, Clean Catch Color Urine Yellow Appearance Urine Clear PH 7.0 5.0-9.0 Glucose Urine UA Negative Negative mg/dL Urine Blood Negative Negative Specific [place] - Urine 1.015 1.005-1.025 Urine Protein Negative [...] Location Date Provider Diagnosis Tj Edmond MD [address] [place] [address] Drive [address] [place] [phone] 09/12/2024 Tj Edmond Blood tests for rout ine general physical examination Z00.00 ; Elevated LFTs R79.89 and Hypercholesterolemia E78.00 Assessments Encounter Date Diagnosis (ICD Code) Assessment Notes Treatment Notes Treatment Clinical Notes Section Notes 09/12/2024 Blood tests for rout ine general physical examination (ICD-10 - Z00.00) 09/12/2024 Elevated LFTs (ICD-1 0 - R79.89) 09/12/2024 Hypercholesterolemia (ICD-10 - E78.00) Plan Of Treatment Next Appt Details Provider Name:Tj Baltazar ier, 09/15/2024 09:30:00 AM, [address] [place] [address] Drive, [address], [place], [place], [phone], Progress Notes * Deangelo MARTINEZDOB:1950 (74 yo M)Acc No.[id number]:09/12/2024 Progress Note Patient:?Deangelo MARTINEZ Provider:?Tj Edmond MD :1950???Age:74 Y???Sex:Male Kal e:09/12/2024 Address:[address] [place], [place] [phone] Subjective: * Chief Complaints: * ???1. Yearly fasting labs. * Medical History:? Objective: * Vitals:? Assessment: * Assessment: 1.?Blood tests for routine g eneral physical examination - Z00.00 (Primary)???2.?Elevated LFTs - R79.89???3.?Hypercholesterolemia - E78.00??? Plan: * Treatment: 2.?Elevated LFTs?LAB: Complete Blood Count Auto Diff (Collection Date & Time - 09/12/2024 07:45 AM) ?LAB: Comprehensive [place]. Panel Fast (Collection Date & Time - 09/12/2024 07:45 AM) ?LAB: Liver Panel (Collection Date & Time - 09/12/2024 07:45 AM) ?LAB: Lipid Panel (Collection Date & Time - 09/12/2024 07:45 AM) ?LAB: PSA,Total (Free>4and<10) (Collection Date & Time - 09/12/2024 07:45 AM) ?LAB: UA ClnCatch+Micro w/rflx Cult (Collection Date & Time - 09/12/2024 07:45 AM) 3.?Hypercholesterolemia?LAB: Complete Blood Count Auto Diff (Collection Date & Time - 09/12/2024 07:45 AM) ?LAB: Comprehensive [place]. Panel Fast (Collection Date & Time - 09/12/2024 07:45 AM) ?LAB: Liver Panel (Collection Date & Time - 09/12/2024 07:45 AM) ?LAB: Lipid Panel (Collection Date & Time - 09/12/2024 07:45 AM) ?LAB: PSA,Total (Free>4and<10) (Collection Date & Time - 09/12/2024 07:45 AM) ?LAB: UA ClnCatch+Micro w/rflx Cult (Collection Date & Time - 09/12/2024 07:45 AM) * Procedure Codes:?14626 VENIP UNCT, ROUTINE* * * The named appointment provid er may or may not be the originator of this progress note, and it is not deemed complete until electronically signed by the appointment provider. Sign off status: Pending * Provider:?Tj Edmond MD Date:?0 09/12/2024 Generated for Seth hidalgo/Kathy/Louitting on:?09/13/2024 09:01 AM EST
== END 2024-09-13 09:24 | disposition home or self-care (01) ==
PROVIDERS: PCP Internal Medicine; Visit Provider Internal Medicine Cardiovascular Disease
DX: I25.10 Atherosclerotic heart disease of native coronary artery without angina pectoris (principal); R00.1 Bradycardia, unspecified
CPT/HCPCS: 93010; 99214; G2211

== ENCOUNTER → 2024-09-13 08:55 | Outpatient (BNVA) | payer MEDICARE, SELFPAY | PROVIDERS: PCP Internal Medicine; Visit Provider Internal Medicine Cardiovascular Disease | DX: I25.10 Atherosclerotic heart disease of native coronary artery without angina pectoris (principal); R00.1 Bradycardia, unspecified; I45.2 Bifascicular block; R94.31 Abnormal electrocardiogram [ECG] [EKG] | CPT/HCPCS: 93005; 99212 ==

== ENCOUNTER 2025-03-05 09:19 | Outpatient (AMB) | payer MEDICARE, SELFPAY ==
--- OUTSIDE RECORDS SUMMARY | 2024-04-24 05:12 | XMS_ITS ---
Author Organization Tj Edmond MD Address [address] [place] [phone] Care Team Providers Care Environmental Services Technician Name Role Phone Tj Edmond Primary Care Provider [phone] REASON FOR VISIT med issue with Sertralin Medications Medication SIG (Take, Route, Fr equency, Duration) Notes Start Date End Date Status Sertraline HCl 100 MG TAKE 1 TABLET BY M OUTH EVERY DAY Orally Once a day for 90 days Active Encounters Encounter Location Date Provider Diagnosis Tj Edmond MD [address] [place] [phone] 04/24/2024 Tj Edmond Plan Of Treatment Medication Medication Name Sig Start Date Stop Date Notes Sertraline HCl 100 MG TAKE 1 TABLET BY M OUTH EVERY DAY Orally Once a day for 90 days Next Appt Details Provider Name:Tj Baltazar ieruss, 03/08/2025 07:00:00 AM, [address] [place] [address], [address], [place], [place], [phone], Provider Name:Tj Baltazar ier, 03/16/2025 10:15:00 AM, [address] [place] [address], [address], [place], [phone], Provider Name:Tj Baltazar ier, 09/13/2025 07:30:00 AM, [address] [place] [address], Suite [facility], [place], [phone], Provider Name:Tj Baltazar ier, 09/20/2025 09:30:00 AM, [address] [place] [address], Suite [facility], [place], [phone], Progress Notes * Deangelo MARTINEZDOB:1950 (73 yo M)Acc No.[id number]:04/24/2024 Patient: Deangelo Kirby :1950 A ge:73 Y S ex:Male Address:[address] [place] [id number] * Refills Refill Sertraline HCl Tablet, 100 MG, Orally, 90 Tablet, TAKE 1 TABLET BY MOUTH EVERY DAY, Once a day, 90 days, Refills=3 * true * Date: Generated for Seth hidalgo/Kathy/Louitting on: 0 03/05/2025 09:46 AM EDT
--- NOTE | 2025-03-05 09:22 | MHC.OFFVIS ---
Vital Signs 03/05/25 09:25 Height 5 ft 4 in Weight 182 lb 1.629 oz BMI 31.3 BP 124/58 L Blood Pressure Location Lt brachial Position Sitting Pulse 57 Pulse Source Pulse Oximeter Intake Visit Reasons: 6m follow up Intake Note: 6m Follow up Housing Management Officer Required: No Accompanied by: Self / Same As Patient Allergies milk (MILK) Adverse Reaction (Mild, Verified 03/16/24 13:58) CONGESTION Medication List - Last Reconciled 03/05/25 by Misha Ma MD amlodipine 10 mg PO DAILY aspirin (Adult Low Dose Aspirin) 81 mg PO DAILY atorvastatin 40 mg PO DAILY nitroglycerin 0.4 mg sublingual Q5M PRN omeprazole 20 mg PO DAILY ranolazine ER 500 mg PO Q12H sertraline 100 mg PO DAILY HPI Comments Details: Deangelo comes for follow-up. He has restricted in activity level due to back pain. He also notices when he is mowing lawn he notices back pain as well as his heart rate is up. He then usually rests and symptoms go away. However he said he has been able to walk longer distances as not having any anginal symptoms on current medical therapy. No blood pressure issues. No lightheadedness, syncope. No prolonged palpitation irregular heartbeat. No shortness of breath, orthopnea, PND. Takes his medications religiously. He has upcoming lipid panel through your office [facility] Medical History (Updated 03/05/25 @ 09:39 by Misha Ma MD) Low BP Hepatitis A infection Anxiety Spinal stenosis, lumbar region with neurogenic claudication Lumbar radiculitis HLD (hyperlipidemia) Coronary artery arteriosclerosis Surgical History (Updated 03/05/25 @ 09:39 by Misha Ma MD) Stented coronary artery History of carpal tunnel surgery Hx of tonsillectomy Hx of appendectomy History of back surgery Hx of knee surgery (~08/2016) Hx of cardiac cath (~01/2016) Family History Father CVD (cardiovascular disease) Mother No problems noted. Social History Alcohol intake: never Patient Tobacco Use Status: Former Tobacco user Years Smoked: 5 years only quit at age 21 Review of Systems Const Denies daytime sleepiness, Denies difficulty sleeping, Denies snoring, Denies stops breathing during sleep and Denies weakness Card Denies chest pain, Denies rapid heart rate, Denies irregular heart rhythm, Denies claudication, Denies leg edema, Denies lightheadedness, Denies palpitations, Denies dyspnea, Denies dyspnea on exertion, Denies orthopnea, Denies paroxysmal nocturnal dyspnea and Denies slow heart rate Resp Denies cough, Denies dyspnea, Denies dyspnea on exertion and Denies snoring GI Reports no additional complaints, Denies hematochezia, Denies change in stool character and Denies dyspepsia Musc Denies abnormal gait, Denies muscle weakness and Denies numbness Neuro Denies abnormal gait, Denies numbness and Denies weakness Endo Denies palpitations Physical Exam Vital Signs: Last Vital Signs Pulse 57 03/05/25 09:25 BP 124/58 L 03/05/25 09:25 BMI result Body Mass Index 31.3 Const General: cooperative, healthy appearing, comfortable and no acute distress Orientation/consciousness: patient oriented x3 Neck Neck: Yes normal visual inspection and Yes no JVD Resp Effort & Inspection: normal respiratory effort Auscultation: clear to auscultation bilaterally, no crackles, no rales, no rhonchi and no wheezes Cardio Jugular venous distension: no JVD Rate: regular rate Rhythm: regular rhythm Heart sounds: S1 normal heart sound present, S2 normal heart sound present, no murmurs and no rubs Neuro General: patient oriented x3 Extrem General: Yes normal to inspection and No no pedal edema Psych Appearance: grossly normal Mental Status: mental status grossly normal Speech and movement: Normal speech and movement present Assessment & Plan Assessment & Plan (1) Coronary artery arteriosclerosis: Comment: follows with Dr. Ma Code(s): I25.10 - Atherosclerotic heart disease of [place] coronary artery without angina pectoris Category: Medical Plan: Coronary artery disease status post prior RCA stent with small area of distal lateral ischemia on a stress test currently on dual antianginal therapy with much improved symptoms of angina and functionality. He is currently limitation appears to be related to his back pain. I have suggested him to pursue that with some local and non pharmacologic therapies. Also seek help with pain management to improve his functionality. Regular physical activity was recommended. Continue lifelong aspirin therapy. Continue amlodipine as well as ranolazine. Advised to call me with worsening symptoms that may require further invasive interventions. Continue aggressive lipid modification. Goal LDL less than 60 mg/dL. Please forward a copy of his lab work to my office. (2) Sinus bradycardia: Code(s): R00.1 - Bradycardia, unspecified Category: Medical Plan: Sinus bradycardia in the past as well as low blood pressure. Both of these situations have resolved. Does not have significant sinus bradycardia at this point time that has symptomatic. Notices elevated heart rate with exercise. No indication for pacing therapy at this point time. Will continue monitor clinically. Will follow up in the clinic in 1 year's time, sooner p.r.n.. Thank you for allowing me to partake in his care Coding Level of Care Code Est Pt Level 4 (69083) Complex EM visit Add On G2211 Diagnoses Coronary artery arteriosclerosis I25.10 Sinus bradycardia R00.1
[2025-03-05 09:25] VITALS: BP 124/58; PULSE 57; BMI 31.3
--- OUTSIDE RECORDS SUMMARY | 2025-03-05 09:46 | XMS_ITS | Patient Health Record ---
Author Organization [facility] Address [address] [place] [phone] Care Team Providers Care Continuous Linter Drier Operator Name Role Phone Tj Edmond MD Primary Care Provider Efrain Gomez Jr Unavailable Allergies No Known Allergies Reason For Referral No Information Medications Medication SIG (Take, Route, Frequency, Duration) [...] EVERY 12 HOURS Oral for 90 Active Immunizations Vaccine Route Administration Date Status Comme nts Influenza Unknown 01/10/2024 Refused Problems Problem Type SNOMED Code ICD Code Onset Dates Problem Status W/U Status Risk Notes Problem 064060015 Colon cancer screening (Z12.11) Active confirmed Problem 46272440 Rectal bleeding (K62.5) Active confirmed Problem 34206528 Gas pain (R14.1) Active confirmed Plan Of Treatment Future Test Test Name Order Date UPPER GI ENDOSCOPY 01/01/2012 COLONOSCOPY 01/01/2012 COLONOSCOPY 01/18/2015 COLONOSCOPY 01/10/2024 Insurance Providers Payer Name Payer Address Payer Phone Subscriber Number Group Number Insured Name Patient Relationship to Insured Coverage Start Date Coverage End Date [facility] [address] [facility] [place] [phone] [id number] LINDY BERNAL Self - patient is the insured Medical (General) History Medical History History ICD Code Hepatitis A infection Fatty liver Anxiety Colonoscopy 02/06, normal, ten-year follo wup Coronary artery disease with stent place ment Hyperlipidemia Lumbar spondylosis Surgical History Surgery Date(Month/Year) appendectomy tonsillectomy carpal tunnel surgery on both hands 2010 back surgery 2013
== END 2025-03-05 09:38 | disposition home or self-care (01) ==
LOC: HO.HCS 09:20
PROVIDERS: PCP Internal Medicine; Visit Provider Internal Medicine Cardiovascular Disease
DX: I25.10 Atherosclerotic heart disease of native coronary artery without angina pectoris (principal); R00.1 Bradycardia, unspecified
CPT/HCPCS: 99214; G2211

== ENCOUNTER → 2025-03-05 09:19 | Outpatient (BNVA) | payer MEDICARE, SELFPAY | PROVIDERS: PCP Internal Medicine; Visit Provider Internal Medicine Cardiovascular Disease | DX: I25.10 Atherosclerotic heart disease of native coronary artery without angina pectoris (principal); R00.1 Bradycardia, unspecified | CPT/HCPCS: 99212 ==

== ENCOUNTER 2025-03-08 11:03 | Outpatient (REF) | payer MEDICARE, SELFPAY ==
[2025-03-08 11:53] LABS: Alanine Aminotransferase 25 U/L (0-40); Albumin Level 4.5 g/dL (3.5-5.0); Alkaline Phosphatase 105 U/L (39-117); Aspartate Amino Transferase 33 U/L (5-37); Cholesterol 123 mg/dL (<200); HDL Cholesterol 38 mg/dL (>40); Total Protein 6.8 g/dL (6.5-8.0); Triglycerides 141 mg/dL (<150)
--- OUTSIDE RECORDS SUMMARY | 2025-03-08 12:12 | XMS_ITS | Patient Health Record ---
Author Organization [facility] Address [address] [place] [phone] Care Team Providers Care Substation Operator Helper Generation Name Role Phone Tj Edmond MD Primary [...] Problem Status W/U Status Risk Notes Problem 822697249 Colon cancer screening (Z12.11) Active confirmed Problem 03992860 Rectal bleeding (K62.5) Active confirmed Problem 40491071 Gas pain (R14.1) Active confirmed Plan Of Treatment Future Test Test Name Order Date UPPER GI ENDOSCOPY 01/01/2012 COLONOSCOPY 01/01/2012 COLONOSCOPY 01/18/2015 COLONOSCOPY 01/10/2024 Insurance Providers Payer Name Payer Address Payer Phone Subscriber Number Group Number Insured Name Patient Relationship to Insured Coverage Start Date Coverage End Date [facility] [address] [place] [phone] [id number] LINDY BERNAL Self - patient is the insured Medical (General) History Medical History History ICD Code Hepatitis A infection Fatty liver Anxiety Colonoscopy 02/06, normal, ten-year follo wup Coronary artery disease with stent place ment Hyperlipidemia Lumbar spondylosis Surgical History Surgery Date(Month/Year) appendectomy tonsillectomy carpal tunnel surgery on both hands 2010 back surgery 2013
--- OUTSIDE RECORDS SUMMARY | 2025-03-08 12:13 | XMS_ITS | Patient Health Record ---
Author Organization Tj Edmond MD Address [address] [place], [place] [id number] Care Team Providers Care Booth Operator Name Role Phone Tj Edmond Primary Care Provider [phone] Allergies No Known Allergies Results Component Value Reference Range Notes Complete Blood Count Auto Di ff Reviewed date:09/12/2024 04:59:49 PM Interpretation: Performing Lab:[facility], [address] [place] [phone] Notes/Report: White Blood Count 6.7 4.8-10.8 X10*3/uL [...] NRBC Abs Auto 0.000 0.0-0.012 X10*3/uL Comprehensive [place]. Panel Fa st Reviewed date:09/12/2024 04:57:32 PM Interpretation: Performing Lab:[facility], [address] [place] [phone] Notes/Report: Sodium 143 135-145 mmol/L Potassium 4.0 [...] Panel Reviewed date:09/12/2024 12:44:28 PM Interpretation: Performing Lab:[facility], [address] [place] [phone] Notes/Report: Bilirubin Direct 0.3 0.0-0.5 mg/dL Lipid Panel Reviewed date:09/12/2024 12:44:36 PM Interpretation: Performing Lab:[facility], [address] [place] [phone] Notes/Report: Triglycerides 178 <150 mg/dL Desirable Triglyceride: [...] (Free>4and<10) Reviewed date:09/12/2024 12:36:13 PM Interpretation: Performing Lab:[facility], [address] [place] [phone] Notes/Report: PSA,Total (Free>4and<10) 3.08 0.00-4.00 ng/mL A [...] t Reviewed date:09/12/2024 12:09:12 PM Interpretation: Performing Lab:[facility], [address] [place] [phone] Notes/Report: [id number] Urine, Clean Catch Color Urine Yellow Appearance Urine Clear PH 7.0 5.0-9.0 Glucose Urine UA Negative Negative mg/dL Urine Blood Negative Negative Specific [place] - Urine 1.015 1.005-1.025 Urine Protein Negative Neg-Trace mg/dL Urine Ketones Negative Negative mg/dL Nitrite Urine Negative Negative Leukocyte Esterase Urine Negative Negative RBC Urine 0-2 0-2 /HPF WBC Urine 0-5 0-5 /HPF Squamous Epithelial Cell Urine 0-2 0-2 /HPF Bacteria Urine None Seen None Seen Hyaline Casts Urine 0-2 0-2 /LPF Occult Blood, Stool, Guaiac Reviewed date:09/17/2024 07:01:09 PM Interpretation:Negative Performing Lab: Notes/Report: Negative Occult Blood, Stool, Guaiac Neg Hold Gold (Not yet reviewed by provider) Interpretation: Performing Lab:[facility], [address] [place] [phone] Notes/Report: Hold Gold See Note Specimen held untested for 24 hours; Call to request Chemistry testing. Reason For Referral No Information Medications Medication SIG (Take, Route, Frequency, Duration) Notes Start Date End Date Status Sertraline HCl 100 MG TAKE 1 TABLET BY M OUTH EVERY DAY Orally Once a day for 90 days Active Atorvastatin Calcium 40 MG 1 tablet Orally Once a day Active Metoprolol Succinate ER 25 MG 1 tab Orally Once a day Not- Taking Omeprazole 20 MG TAKE 1 CAPSULE BY MO UTH EVERY DAY for 90 Active HYDROcodone-Acetaminophen 5-325 MG 1 tablet as needed Orally every 6 hrs for 7 days 07/03/2021 Not-Taking Ibuprofen 800 MG 1 tablet with food o r milk as needed Orally Three times a day 05/08/2021 Not-Taking Nitrostat 0.4 MG as directed Sublingu al i tab sub for pain. may repeat times 3 for 7 days 01/17/2016 Not-Taking dexAMETHasone 4 MG 1 tablet Orally Thre e times a day for 7 days 04/22/2021 Not-Takin g amLODIPine Besylate 10 MG 1 tablet Orall y Once a day Active Ranexa Active Anusol-HC 25 MG 1 suppository Rectal Twice a day for 14 day(s) 01/14/2015 Not-Taking Aspirin Adult Low Strength 81 MG 1 tablet Orally Once a day 01/17/2016 Active Immunizations Vaccine Route Administration Date Status Comme nts DECLINED, FLU Unknown 04/03/2013 Administered DECLINED, PNEUMO Unknown 04/06/2013 Administered TDaP Unknown 08/08/2018 Administered Mimi's SARS-COV-2 Moderna Unknown 11/14/2020 Administered SARS-COV-2 Moderna Unknown 12/12/2020 Administered SARS-COV-2 Moderna Unknown 06/23/2021 Administered Flu Vaccine Unknown 04/27/2014 Refused PPSV23 (Pnemovax) Unknown 04/27/2014 Refused Fluarix Quadrivalent Unknown 05/10/2015 Refused Flu Vaccine Unknown 05/18/2016 Refused Fluarix Quadrivalent Unknown 07/06/2017 Refused Prevnar 13 Unknown 07/15/2017 Refused Shingrix Unknown 01/17/2018 Refused Fluarix Quadrivalent Unknown 07/25/2018 Refused PPSV23 (Pnemovax) Unknown 07/25/2018 Refused Fluarix Quadrivalent Unknown 07/31/2019 Refused PPSV23 (Pnemovax) Unknown 02/15/2020 Refused Fluarix Quadrivalent Unknown 08/22/2020 Refused Fluarix Quadrivalent Unknown 09/12/2020 Refused Influenza High Dose Unknown 04/22/2021 Refused Social History Tobacco Use/Smoking Question Answer Notes How long has it been since y ou last smoked? > 10 years Additional Findings: Tobacco Non-User Fo rmer smoker, currently using no form of tobacco Alcohol Screen Question Answer Notes Did you have a drink containing alcohol in the p ast year? No Points 0 Interpretation Negative Problems Problem Type SNOMED Code ICD Code Onset Dates Problem Status W/U Status Risk Notes Problem 527162409 Neuropathy (G62.9) Active confirmed Problem Dysthymia (79301957) Dysthymic disorder (F34.1) Active confirmed Problem Gastro-esophageal reflux disease without esophagitis (521390546) Gastro-esophageal reflux disease without esophagitis (K21.9) Active confirmed Problem 84363278 Chest pain, unspecified (R07.9) Active confirmed Problem 366585429 Body mass index (BMI) 30.0-30.9, adult (Z68.30) Active confirmed Problem Elevated liver enzymes level (995645650) Elevated LFTs (R79.89) Active confirmed Problem 327940529 Cervical disc di sease (M50.90) Active confirmed Problem 52867949 Sciatica of righ t side (M54.31) Active confirmed Problem 83324264 Hypercholesterol emia (E78.00) Active confirmed Problem 815093393 History of heart artery stent (Z95.5) Active confirmed Problem 46302955360329114 Carpal tunnel syndrome on both sides (G56.03) Active confirmed Problem 09586826 Epididymal cyst (N50.3) Active confirmed Problem 47508787 Chronic coronary artery disease (I25.10) Active confirmed Vital Signs Blood pressure diastolic 56 mm Hg 09/15/2024 donn ght is up 7 poundss with boots Height 65 in 09/15/2024 weight is up 7 poundss with boots Blood pressure systolic 112 mm Hg 09/15/2024 weig ht is up 7 poundss with boots Weight 187 lbs 09/15/2024 weight is up 7 poundss with boots BMI 31.12 kg/m2 09/15/2024 weight is up 7 poundss with boots Encounters Encounter Location Date Provider Diagnosis Tj Edmond MD [address] [place] [id number] 09/12/2024 Tj Edmond Blood tests for rout ine general physical examination Z00.00 ; Elevated LFTs R79.89 and Hypercholesterolemia E78.00 Tj Edmond MD [address] [place] [id number] 03/08/2025 Tj Edmond Hypercholesterolemia E78.00 Tj Edmond MD [address] [place] [id number] 03/14/2024 Tj Edmond Carpal tunnel syndro me on both sides G56.03 ; History of heart artery stent Z95.5 ; Chronic coronary artery disease I25.10 and Hypercholesterolemia E78.00 Tj Edmond MD [address] [place] [id number] 09/15/2024 Tj Edmond Hypercholesterolemia E78.00 ; Annual physical exam Z00.00 ; Chronic coronary artery disease I25.10 ; Gastro-esophageal reflux disease without esophagitis K21.9 ; Colon cancer screening Z12.11 and Depression screening Z13.31 Tj Edmond MD [address] [place], [place] [id number] 04/24/2024 Tj Edmond Assessments Encounter Date Diagnosis (ICD Code) Assessment Notes Treatment Notes Treatment Clinical Notes Section Notes 09/12/2024 Blood tests for rout ine general physical examination (ICD-10 - Z00.00) 03/08/2025 Hypercholesterolemia (ICD-10 - E78.00) 03/14/2024 Carpal tunnel syndro me on both sides (ICD-10 - G56.03) causing his numbness in arms/ wants to wait to have surgery when on summer vacation 03/14/2024 History of heart art alyce stent (ICD-10 - Z95.5) 09/15/2024 Hypercholesterolemia (ICD-10 - E78.00) well controlled, will continue current regiment 09/15/2024 Annual physical exam (ICD-10 - Z00.00) labs reviuewed and discussed with patient 09/12/2024 Elevated LFTs (ICD-1 0 - R79.89) 03/14/2024 Chronic coronary art alyce disease (ICD-10 - I25.10) doing well with no chest pains but getting a little light headed with the angina meds/ will need to contact dr england if it persists 09/15/2024 Chronic coronary art alyce disease (ICD-10 - I25.10) doing well on meds, will continue current regimeny 09/12/2024 Hypercholesterolemia (ICD-10 - E78.00) 03/14/2024 Hypercholesterolemia (ICD-10 - E78.00) stable, will continue current regiment 09/15/2024 Gastro-esophageal re flux disease without esophagitis (ICD-10 - K21.9) doinng well, will continue current regiment 09/15/2024 Colon cancer screeni ng (ICD-10 - Z12.11) guaiac negaive 09/15/2024 Depression screening (ICD-10 - Z13.31) negative screen 09/15/2024 Other all labs good Plan Of Treatment Pending Test Test Name Order Date Electrocardiogram (EKG) 08/10/2019 Electrocardiogram (EKG) 02/13/2011 Electrocardiogram (EKG) 01/17/2016 SENSE NERVE CONDUCTION TEST 01/30/2019 CARDIOVASCULAR STRESS TEST 01/17/2016 Liver Panel 03/08/2025 Lipid Panel with Reflex 03/08/2025 Hold Gold 03/08/2025 NE nerve conduction velocity 09/04/2022 Next Appt Details Provider Name:Tj Baltazar ier, 03/16/2025 10:15:00 AM, [address] [place] [address], Suite [facility], [place], [place], [phone], Provider Name:Tj Baltazar ier, 09/13/2025 07:30:00 AM, [address] [place] [address], [address] [facility], [place], [place], [phone], Provider Name:Tj Baltazar ier, 09/20/2025 09:30:00 AM, [address] [place] [address], [place] [address], [place], [place], [phone], Insurance Providers Payer Name Payer Address Payer Phone Subscriber Number Group Number Insured Name Patient Relationship to Insured Coverage Start Date Coverage End Date [employer] [address] [place] [phone] [id number] Deangelo Martinez Self - patient is the insured MEDICARE [address] [place] [address] Deangelo Martinez Self - patient is the insured Medical (General) History Medical History History ICD Code colonoscopy 01/2012 due in 5 years; 02/13/[address] Craig - repeat 10 years(2024)02/25/24 colonsocopy repeat 10y had testicular nodule evaluated and miracle [facility] Surgical History Surgery Date(Month/Year) Coronary Angioplasty for Single Vessell 01/2016 RT Knee Partial Medial Meniscectomy - Dr Jeff Sanders 08/2016
[2025-03-08 12:15] LABS: Reflex LDLD? No
== END 2025-03-08 11:04 | disposition home or self-care (01) ==
LOC: HO.LNP 11:03
PROVIDERS: Visit Provider Internal Medicine
DX: E78.00 Pure hypercholesterolemia, unspecified (principal)
CPT/HCPCS: 80061; 80076